=== PATIENT | female | born 1950 | race Caucasian/White ===

== ENCOUNTER 2016-07-10 00:46 | Emergency (ER) | payer MEDICARE, OTHER ==
[~2016-07-10] VITALS: Ht 154.9 cm; Wt 69.9 kg
[~2016-07-10 00:46] MED LIST: ALPR-236 PO; ASCO500C15 PO; BUPR150T8; CALC-946 PO; CETI10TA83 PO; CITA-51; ESTR2TAB23 PO; HYDR-2164 PO; LANS30CA44 PO; MULT-862 PO; OXYC1TAB8 PO; PSEU120T44 PO; RAMIPRIL PO; SENN1TAB89 PO
--- OUTSIDE RECORDS SUMMARY | 2016-07-10 00:50 | XMS REPORT | Referral Summary ---
Author Author [facility] Organization [facility] Address Unknown Phone Unavailable Care Team Providers Care Industrial Psychology Professor Name Role Phone Sanket Villalpando Primary Care Physician [phone] Encounter VC Date(s): 08/04/14 - 08/04/14 [facility] [address] [place], [place] [address] Discharge Disposition: 01-Home or Self Care Attending Physician: Frank Liu MD Admitting Physician: Frank Liu MD Vital Signs No data available for this section Problem List Condition Effective Dates Status Health Status Informant Arthritis(Confirmed) Resolved Arthropathy Active Hand(Confirmed) Cervicalgia(Confirme Resolved d) Depression(Confirmed Resolved ) Dyspepsia(Confirmed) Resolved Esophageal Resolved reflux(Confirmed) Hypertension(Confirm Resolved ed) Insomnia(Confirmed) Resolved Left lateral knee Active pain(Confirmed) Primary Active osteoarthritis of right knee(Confirmed) Primary Active osteoarthritis of left knee(Confirmed) Migraine Active headache(Confirmed) Obesity(Confirmed) Active patient Obesity(Confirmed) Resolved Osteoarthritis(Confi Resolved rmed) Synovial Resolved cyst(Confirmed) Venous Resolved insufficiency(Confir med) Allergies, Adverse Reactions, Alerts Substance Reaction Severity Status erythromycin Unknown Active Medications ALPRAZolam 0.5 mg oral tablet 1 tabs, Oral, TID, as needed for anxiety, 0 Refill(s) Start Date: 01/13/14 Status: Ordered Calcium 600+D tabs, Oral, TID, 0 Refill(s) Start Date: 01/13/14 Status: Ordered CeleXA 40 mg oral tablet tabs, Oral, Daily, 0 Refill(s) Start Date: 01/13/14 Status: Ordered Diflucan 0 Refill(s) Start Date: 01/13/14 Status: Ordered estradiol 2 mg oral tablet tabs, Oral, Daily, 0 Refill(s) Start Date: 01/13/14 Status: Ordered hydrochlorothiazide 25 mg oral tablet 12.5 mg 0.5 tabs, Oral, Daily, 0 Refill(s) Start Date: 12/22/14 Status: Ordered Imitrex 50 mg oral tablet tabs, Oral, Daily, 0 Refill(s) Start Date: 01/13/14 Status: Ordered meloxicam 15 mg oral tablet tabs, Oral, Daily, 0 Refill(s) Start Date: 01/13/14 Status: Ordered oxyCODONE-acetaminophen 5 mg-325 mg oral tablet tabs, Oral, q6hr, 0 Refill(s) Start Date: 01/13/14 Status: Ordered Percocet 5/325 oral tablet 1 tabs, Oral, q12hr, as needed for pain, # 50 tabs, 0 Refill(s) Start Date: 01/04/15 Stop Date: 02/06/15 Status: Ordered Prevacid 30 mg oral delayed release capsule caps, Oral, Daily, 0 Refill(s) Start Date: 01/13/14 Status: Ordered ramipril 10 mg oral capsule 10 mg 1 caps, Oral, Daily, # 30 caps, 0 Refill(s) Start Date: 12/22/14 Status: Ordered Sudafed Oral, q6hr, 0 Refill(s) Start Date: 01/13/14 Status: Ordered traMADol 50 mg oral tablet tabs, Oral, q4hr, 0 Refill(s) Start Date: 01/13/14 Status: Ordered Vitamin D3 0 Refill(s) Start Date: 01/13/14 Status: Ordered Wellbutrin SR Oral, BID, 0 Refill(s) Start Date: 01/13/14 Status: Ordered ZyrTEC 10 mg oral tablet tabs, Oral, Daily, 0 Refill(s) Start Date: 01/13/14 Status: Ordered Results No data available for this section Immunizations No data available for this section Procedures Procedure Date Related Diagnosis Body Site Arthrocentesis, aspiration and/or injection, 08/04/14 major joint or bursa (eg, shoulder, hip, knee, subacromial bursa); without ultrasound guidance R KNEE PMM W/CHONDROPLASTY [facility] 03/01/13 Total hip replacement, right 8/17/11 Appendectomy Dilation and curettage Hammer toe operation Hysterectomy Tonsillectomy Social History Social History Type Response Smoking Status Current every day smoker; Type: Cigarettes Assessment and Plan Extracted from: Title: Office Visit Note Author: Frank Liu MD Date: 08/04/14 Assessment/Plan Primary osteoarthritis of right knee 63-year-old female with right knee osteoarthrosis and genu valgum We again talked about treatment options. She wanted to try another steroid injection and this was done today. Certainly would take a knee replacement to improve her symptoms significantly. I gave her a booklet on this. Procedure note: After informed consent was obtained, the right knee was was prepped with Betadine and the skin overlying the inferolateral portal site was anesthetized with one percent lidocaine using a 25-gauge skin needle. After adequate local anesthesia was obtained, the right knee was injected with half percent Marcaine and 80 mg of Kenalog using a 20-gauge spinal needle. Injection site was then dressed with a sterile dressing. The patient tolerated the procedure well. The patient was advised to contact our office if this does not bring some relief. She wanted some oxycodone too tight her over and we gave her prescription for this for one time only. This today lasted 15 minutes, over 50 percent of the time being spent in discussion of the condition of her right knee and possible treatment options. Ordered: bupivacaine, 3 mL=, IntraARTICULAR , Once, First Dose: 08/04/14 17:00:00 CDT, Stop Date: 08/04/14 17:00:00 CDT, [facility] [id number], Form: Injection triamcinolone, 80 mg/ 2 mL, IntraARTICULAR , Once, First Dose: 08/04/14 17:00: 00 CDT, Stop Date: 08/04/14 17:00:00 CDT, [facility] [id number]
--- OUTSIDE RECORDS SUMMARY | 2016-07-10 00:50 | XMS REPORT | Referral Summary ---
Author Author [facility] Organization [facility] Address Unknown Phone Unavailable Care Team Providers Care Expander Name Role Phone Sanket Villalpando Primary Care Physician [phone] Encounter VC Date(s): 01/12/15 - 01/12/15 [facility] [address] [place], [place] [address] Discharge Diagnosis: Primary osteoarthritis of right knee Discharge Disposition: 01-Home or Self Care Attending Physician: Black Swartz APRN Admitting Physician: Black Swartz APRN Vital Signs Most recent to 1 oldest [Reference Range]: Respiratory Rate 18 br/min [14-20 br/min] (01/12/15 3:34 PM) Problem List Condition Effective Dates Status Health Status Informant Arthritis(Confirmed) Resolved Arthropathy Active Hand(Confirmed) Cervical Active spondylosis(Confirme d) Cervicalgia(Confirme Resolved d) Depression(Confirmed Resolved ) Dyspepsia(Confirmed) Resolved Esophageal Resolved reflux(Confirmed) Presence of left Active artificial knee joint(Confirmed) Hypertension(Confirm Resolved ed) Insomnia(Confirmed) Resolved Left lateral knee Active pain(Confirmed) Primary Active osteoarthritis of right knee(Confirmed) Primary Active osteoarthritis of left knee(Confirmed) Migraine Active headache(Confirmed) Obesity(Confirmed) Resolved Obesity(Confirmed) Active patient Osteoarthritis(Confi Resolved rmed) Synovial Resolved cyst(Confirmed) Venous [...] 0 Refill(s) Start Date: 12/22/14 Status: Ordered meloxicam 15 mg oral tablet tabs, Oral, Daily, 0 Refill(s) Start Date: 01/13/14 Status: Ordered Prevacid 30 mg oral delayed [...] Procedures Procedure Date Related Diagnosis Body Site L TKA [facility] 02/06/15 Arthrocentesis, aspiration and/or injection, 01/12/15 major joint or bursa (eg, shoulder, hip, knee, subacromial bursa); without ultrasound guidance R KNEE PMM W/CHONDROPLASTY [facility] 03/01/13 Total hip replacement, right 11/07/10 Appendectomy Dilation and curettage Hammer toe operation Hysterectomy Tonsillectomy 1M17.12 OA L KNEE [facility] 05/07/2015 Social History Social History Type Response Smoking Status Current every day smoker; Type: Cigarettes Assessment and Plan Extracted from: Title: Office Visit Note Author: Black Swartz APRN Date: 01/12/15 Assessment/Plan 1.Primary osteoarthritis of right knee Reviewed radiographbilateral standing knees with the patient today. Patient does have end-stage arthritis bilateral knees. Patient states that her left knee pain is worse than the right. Patient is on the schedule for left total knee arthroplasty on February 06. Patient is here seeking relief from her right knee pain. Patient is hopefulthatshe can reduce the pain in the right knee so that she will havean easier time with rehabilitationon the left kneewith having greater ability to use the right kneein less painduring her left knee rehabilitation. Recommendation is made for right knee intra-articular steroid injection. Patient does have complete loss of the lateral joint spaceright knee. Recommendation is made for right knee intra-articular steroid injection. Patient is in agreement with this plan. Procedure note: After written informed consent was obtained for a right knee intra-articular steroid injection, the patient was placed in a sitting position. The injection site was cleaned with three Betadine swabs. 3 mL of one percent plain lidocaine was injected using a 25-gauge needle into the right anterior medialknee injection due tothecomplete loss of lateral joint space. I did switch to using the anterolateral knee injection site and was able to get into the joint space without difficulty . After this local had set up, a mixture of 80mg of Kenalog and 3 mL of half percent plain Bupivacaine was injected using a 20-gauge spinal needle into the right intra-articular space. Sterile technique was used throughout the procedure. The injection site was cleaned with alcohol and a Band-Aid was applied. The patient tolerated the procedure without difficulty. The patient was advised to contact our office if this injection does not bring some relief. Ordered: bupivacaine, 3 mL=, IntraARTICULAR , Once, First Dose: 01/12/15 17:00:00 CDT, Stop Date: 01/12/15 17:00:00 CDT, [facility] [id number], Form: Injection triamcinolone, 2 mL, IntraARTICULAR, Once, First Dose: 01/12/15 17:00:00 CDT, Stop Date: 01/12/15 17:00:00 CDT, [facility] [id number], Form: Injection Arthro/Asp Major Joint Inj (Shoulder, Hip, Knee) 91122 Extracted from: Title: Ambulatory Patient Education Author: Black Swartz APRN Date : 01/12/15 Family Medicine Knee Injection Joint injections are shots. Your caregiver will place a needle into your knee joint. The needle is used to put medicine into the joint. These shots can be used to help treat different painful knee conditions such as osteoarthritis, bursitis, local flare-ups of rheumatoid arthritis, and pseudogout. Anti- inflammatory medicines such as corticosteroids and anesthetics are the most common medicines used for joint and soft tissue injections. PROCEDURE The skin over the kneecap will be cleaned with an antiseptic solution. Your caregiver will inject a small amount of a local anesthetic (a medicine like Novocaine) just under the skin in the area that was cleaned. After the area becomes numb, a second injection is done. This second injection usually includes an anesthetic and an anti-inflammatory medicine called a steroid or cortisone. The needle is carefully placed in between the kneecap and the knee, and the medicine is injected into the joint space. After the injection is done, the needle is removed. Your caregiver may place a bandage over the injection site. The whole procedure takes no more than a couple of minutes. BEFORE THE PROCEDURE Wash all of the skin around the entire knee area. Try to remove any loose, scaling skin. There is no other specific preparation necessary unless advised otherwise by your caregiver. LET YOUR CAREGIVER KNOW ABOUT: Allergies. Medications taken including herbs, eye drops, over the counter medications , and creams. Use of steroids (by mouth or creams). Possible , if applicable. Previous problems with anesthetics or Novocaine. History of blood clots (thrombophlebitis). History of bleeding or blood problems. Previous surgery. Other health problems. RISKS AND COMPLICATIONS Side effects from cortisone shots are rare. They include: Slight bruising of the skin. Shrinkage of the normal fatty tissue under the skin where the shot was given. Increase in pain after the shot. Infection. Weakening of tendons or tendon rupture. Allergic reaction to the medicine. Diabetics may have a temporary increase in their blood sugar after a shot. Cortisone can temporarily weaken the immune system. While receiving these shots, you should not get certain vaccines. Also, avoid contact with anyone who has chickenpox or measles. Especially if you have never had these diseases or have not been previously immunized. Your immune system may not be strong enough to fight off the infection while the cortisone is in your system. AFTER THE PROCEDURE You can go home after the procedure. You may need to put ice on the joint 15-20 minutes every 3 or 4 hours until the pain goes away. You may need to put an elastic bandage on the joint. HOME CARE INSTRUCTIONS Only take xtje-kyd-mqyeycp or prescription medicines for pain, discomfort, or fever as directed by your caregiver. You should avoid stressing the joint. Unless advised otherwise, avoid activities that put a lot of pressure on a knee joint, such as: Jogging. Bicycling. Recreational climbing. Hiking. Laying down and elevating the leg/knee above the level of your heart can help to minimize swelling. SEEK MEDICAL CARE IF: You have repeated or worsening swelling. There is drainage from the puncture area. You develop red streaking that extends above or below the site where the needle was inserted. SEEK IMMEDIATE MEDICAL CARE IF: You develop a fever. You have pain that gets worse even though you are taking pain medicine. The area is red and warm, and you have trouble moving the joint. MAKE SURE YOU: Understand these instructions. Will watch your condition. Will get help right away if you are not doing well or get worse. Document Released: 06/01/2007 Document Revised: 06/01/2012 Document Reviewed: [facility] Patient Information 2015 [employer] [facility]. This information is not intended to replace advice given to you by your health care provider. Make sure you discuss any questions you have with your health care provider. Osteoarthritis Osteoarthritis is a disease that causes soreness and inflammation of a joint. It occurs when the cartilage at the affected joint wears down. Cartilage acts as a cushion, covering the ends of bones where they meet to form a joint. Osteoarthritis is the most common form of arthritis. It often occurs in older people. The joints affected most often by this condition include those in the: Ends of the fingers. Thumbs. Neck. Lower back. Knees. Hips. CAUSES Over time, the cartilage that covers the ends of bones begins to wear away. This causes bone to rub on bone, producing pain and stiffness in the affected joints. RISK FACTORS Certain factors can increase your chances of having osteoarthritis, including: Older age. Excessive body weight. Overuse of joints. Previous joint injury. SIGNS AND SYMPTOMS Pain, swelling, and stiffness in the joint. Over time, the joint may lose its normal shape. Small deposits of bone (osteophytes) may grow on the edges of the joint. Bits of bone or cartilage can break off and float inside the joint space. This may cause more pain and damage. DIAGNOSIS Your health care provider will do a physical exam and ask about your symptoms. Various tests may be ordered, such as: X-rays of the affected joint. An MRI scan. Blood tests to rule out other types of arthritis. Joint fluid tests. This involves using a needle to draw fluid from the joint and examining the fluid under a microscope. TREATMENT Goals of treatment are to control pain and improve joint function. Treatment plans may include: A prescribed exercise program that allows for rest and joint relief. A weight control plan. Pain relief techniques, such as: Properly applied heat and cold. Electric pulses delivered to nerve endings under the skin (transcutaneous electrical nerve stimulation [TENS]). Massage. Certain nutritional supplements. Medicines to control pain, such as: Acetaminophen. Nonsteroidal anti-inflammatory drugs (NSAIDs), such as naproxen. Narcotic or central-acting agents, such as tramadol. Corticosteroids. These can be given orally or as an injection. Surgery to reposition the bones and relieve pain (osteotomy) or to remove loose pieces of bone and cartilage. Joint replacement may be needed in advanced states of osteoarthritis. HOME CARE INSTRUCTIONS Take medicines only as directed by your health care provider. Maintain a healthy weight. Follow your health care provider's instructions for weight control. This may include dietary instructions. Exercise as directed. Your health care provider can recommend specific types of exercise. These may include: Strengthening exercises. These are done to strengthen the muscles that support joints affected by arthritis. They can be performed with weights or with exercise bands to add resistance. Aerobic activities. These are exercises, such as brisk walking or low- impact aerobics, that get your heart pumping. Czgnq-aj-rttahv activities. These keep your joints limber. Balance and agility exercises. These help you maintain daily living skills. Rest your affected joints as directed by your health care provider. Keep all follow-up visits as directed by your health care provider. SEEK MEDICAL CARE IF: Your skin turns red. You develop a rash in addition to your joint pain. You have worsening joint pain. You have a fever along with joint or muscle aches. SEEK IMMEDIATE MEDICAL CARE IF: You have a significant loss of weight or appetite. You have night sweats. FOR MORE INFORMATION [employer] [place] of Arthritis and Musculoskeletal and Skin Diseases: www.niams.nih.gov [employer] [place] on Aging: www.venkatesh.nih.gov [employer]: www.rheumatology.org Document Released: 03/10/2006 Document Revised: 07/25/2014 Document Reviewed: [employer] Patient Information 2015 [employer]. This information is not intended to replace advice given to you by your health care provider. Make sure you discuss any questions you have with your health care provider. No follow up information was provided.
--- OUTSIDE RECORDS SUMMARY | 2016-07-10 00:50 | XMS REPORT | Referral Summary ---
Author Author [facility] Organization [facility] Address Unknown Phone Unavailable Care Team Providers Care Lay Out Worker Name Role Phone Sanket Villalpando Primary Care Physician [phone] Encounter VC Date(s): 12/22/14 - 12/22/14 [facility] [address] [place], [place] [address] [[email or web address] Discharge Diagnosis: Primary osteoarthritis of left knee Discharge Disposition: 01-Home or Self Care Attending Physician: Frank Liu MD Admitting Physician: Frank Liu MD Vital Signs No data available for this section Problem List Condition Effective Dates Status Health Status Informant Arthritis(Confirmed) Resolved Arthritis of knee, Active right(Confirmed) Arthropathy Active Hand(Confirmed) Cervicalgia(Confirme Resolved d) Depression(Confirmed Resolved ) Dyspepsia(Confirmed) Resolved Esophageal Resolved reflux(Confirmed) Hypertension(Confirm Resolved ed) Insomnia(Confirmed) Resolved Left lateral knee Active pain(Confirmed) Primary Active osteoarthritis of left knee(Confirmed) Migraine Active headache(Confirmed) Obesity(Confirmed) Active patient Obesity(Confirmed) Active patient Obesity(Confirmed) Resolved Osteoarthritis(Confi Resolved [...] Procedures Procedure Date Related Diagnosis Body Site R KNEE PMM W/CHONDROPLASTY [facility] 03/01/13 Total hip replacement, right 11/07/10 Appendectomy Dilation and curettage Hammer toe operation Hysterectomy Tonsillectomy Social History Social History Type Response Smoking Status Current every day smoker; Type: Cigarettes Assessment and Plan No data available for this section
--- OUTSIDE RECORDS SUMMARY | 2016-07-10 00:50 | XMS REPORT | Referral Summary ---
Author Author [facility] Organization [facility] Address Unknown Phone Unavailable Care Team Providers Care Parking Control Officer Name Role Phone Sanket Villalpando Primary Care Physician [phone] Encounter VC Date(s): 12/08/14 - 12/08/14 [facility] [address] [place], [place] [address] Discharge Disposition: 01-Home or Self Care [...] Date Related Diagnosis Body Site L TKA [facility] 02/06/15 R KNEE PMM W/CHONDROPLASTY [facility] 03/01/13 Total hip replacement, right 11/07/10 Appendectomy Dilation and curettage Hammer toe operation Hysterectomy Tonsillectomy 1M17.12 OA L KNEE [facility] 05/07/2015 Social History Social History Type Response Smoking Status Current every day smoker; Type: Cigarettes Assessment and Plan Extracted from: Title: Ortho L Knee Brace Fit Author: Ashley Hassan RN Date: 12/08/14 pt presents to clinic ambulatory with cane, did have trouble rising from sitting position, pt states "I feel so unstable with this knee", states she is planning to get R knee replaced in the future but "I have to get this one stable first", pt ambulated to cast room, fitted pt with large hinge brace to L knee, pt ambulated around room and down hallway with some relief, pt states "I think this will work", pt ambulated to exit without difficulty, pt states has appointment with Dr. Liu 10/01/15 to re-evaluate leg, encouraged pt to call if any questions or concerns
--- OUTSIDE RECORDS SUMMARY | 2016-07-10 00:51 | XMS REPORT | Referral Summary ---
Author Author [facility] Organization [facility] Address Unknown Phone Unavailable Care Team Providers Care Echocardiograph Technician Name Role Phone Sanket Villalpando Primary Care Physician [phone] Encounter VC Date(s): 04/18/15 - 04/18/15 [facility] [address] [place], [place] [address] Discharge Diagnosis: Encounter for orthopedic follow-up care Discharge Diagnosis: Presence of left artificial knee joint Discharge Diagnosis: Contusion of left knee Discharge Disposition: 01-Home or Self Care Attending Physician: Black Swartz APRN Admitting Physician: Black Swartz APRN Vital Signs No data available for this [...] Percocet 5/325 oral tablet 1 tabs, Oral, TID, as needed for pain, Max 3 tabs per 24 hours, # 50 tabs, 0 Refill(s) Start Date: 03/29/15 Stop Date: 04/26/15 Status: Ordered Prevacid 30 mg oral delayed [...] Date Related Diagnosis Body Site L TKA [facility] 02/06/15 R KNEE PMM W/CHONDROPLASTY [facility] 03/01/13 Total hip replacement, right 11/07/10 Appendectomy Dilation and curettage Hammer toe operation Hysterectomy Tonsillectomy 1M17.12 OA L KNEE [facility]DS 05/07/2015 Social History Social History Type Response Smoking Status Current every day smoker; Type: Cigarettes Assessment and Plan Extracted from: Title: Office Visit Note Author: Black Swartz DINORA Date: 04/18/15 Assessment/Plan 1.Presence of left artificial knee joint Ordered: Postoperative Est 51720 2.Contusion of left knee Ordered: Postoperative Est 55426 3.Left knee pain Ordered: Postoperative Est 87617 XR Knee 1 or 2 Views Left 4.Encounter for orthopedic follow-up care Reviewed radiographs taken today with Dr. Liu on the patient. Discussed patient's progress and prognosis after her fall onto the left knee.. Patient does havecontusion ecchymosis over the left knee. Patientdoes havesome new left knee area pain. Patient reports that the leftknee painis reducing in severity. Patient does report some continued left knee pain with known end-stage arthritisright knee with complete loss of lateral joint space. Patient does know at some point she will need to have a right knee replacement procedure however she needs toa crewmore PTObefore proceeding with scheduling of the surgery. Discussed with patient thatthere does appear to be any acute injury to the left knee. Patient should continue with her range of motion exercises of the left knee. Counseled patientthat it will take some time for theecchymosis and bruising to improve. Patient will follow-up on as-needed basis in regards to the fallonto the left knee. Patient will call with any questions or concerns regarding care and treatment of her left knee replacement. Patient is in agreement with this plan. Ordered: Postoperative Est 63286
--- OUTSIDE RECORDS SUMMARY | 2016-07-10 00:51 | XMS REPORT | Referral Summary ---
Author Author [facility] Organization [facility] Address Unknown Phone Unavailable Care Team Providers Care Business Services Officer Name Role Phone Sanket Villalpando Primary Care Physician [phone] Encounter VC Date(s): 08/04/14 - 08/04/14 [facility] [address] [place], [place] [address] Discharge Disposition: 01-Home or Self Care Attending [...] Date Related Diagnosis Body Site L TKA [facility] 02/06/15 Arthrocentesis, aspiration and/or injection, 08/04/14 major joint or bursa (eg, shoulder, hip, knee, subacromial bursa); without ultrasound guidance R KNEE PMM W/CHONDROPLASTY [facility] 03/01/13 Total hip replacement, right 11/07/10 [...] 17:00:00 CDT, Stop Date: 08/04/14 17:00:00 CDT, [facility] [id number], Form: Injection triamcinolone, 80 mg/ 2 mL, IntraARTICULAR , Once, First Dose: 08/04/14 17:00: 00 CDT, Stop Date: 08/04/14 17:00:00 CDT, [facility] [id number]
--- OUTSIDE RECORDS SUMMARY | 2016-07-10 00:51 | XMS REPORT | Referral Summary ---
Author Author [facility] Organization [facility] Address Unknown Phone Unavailable Care Team Providers Care Bonding And Composite Fabricator Name Role Phone Sanket Villalpando Primary Care Physician [phone] Encounter VC Date(s): 05/11/15 - 05/11/15 [facility] [address] [place], [place] [address] Discharge Diagnosis: Primary osteoarthritis of right knee Discharge Diagnosis: Cervical spondylosis Discharge Diagnosis: Arthritis pain of shoulder Discharge Disposition: 01-Home or Self Care Attending Physician: Frank Liu MD Admitting Physician: Frank Liu MD Vital Signs Most recent to 1 oldest [Reference Range]: Respiratory Rate 18 br/min [14-20 br/min] (05/11/15 12:58 PM) Problem List Condition Effective Dates Status [...] 01/13/14 Status: Ordered Percocet 5/325 oral tablet 1-2 tabs, Oral, Daily, as needed for pain, Max 8 tabs per 24 hours, # 50 tabs, 0 Refill(s) Start Date: 05/11/15 Stop Date: 05/19/15 Status: Ordered Prevacid 30 mg oral delayed [...] Diagnosis Body Site Arthrocentesis, aspiration and/or injection, 05/11/15 major joint or bursa (eg, shoulder, hip, knee, subacromial bursa); without ultrasound guidance L TKA [facility] 02/06/15 R KNEE PMM W/CHONDROPLASTY [facility] 03/01/13 Total hip replacement, right 11/07/10 Appendectomy Dilation and curettage Hammer toe operation Hysterectomy Tonsillectomy 1M17.12 OA L KNEE GLOBAL ENDS 05/07/2015 Social History Social History Type Response Smoking Status Current every day smoker; Type: Cigarettes Assessment and Plan No data available for this section
--- OUTSIDE RECORDS SUMMARY | 2016-07-10 00:51 | XMS REPORT | Referral Summary ---
Author Author [facility] Organization [facility] Address Unknown Phone Unavailable Care Team Providers Care Charge Poster Name Role Phone Sanket Villalpando Primary Care Physician [phone] Encounter VC Date(s): 11/10/14 - 11/10/14 [facility] [address] [place], [place] [address] Discharge Diagnosis: Left lateral knee pain Discharge Disposition: 01-Home or Self Care Attending [...] Date Related Diagnosis Body Site L TKA [facility] 02/06/15 R KNEE PMM W/CHONDROPLASTY [facility] 03/01/13 Total hip replacement, right 11/07/10 Appendectomy Dilation and curettage Hammer toe operation Hysterectomy Tonsillectomy 1M17.12 OA L KNEE GLOBAL ENDS 05/07/2015 Social History Social History Type Response Smoking Status Current every day smoker; Type: Cigarettes Assessment and Plan Extracted from: Title: Office Visit Note Author: Frank Liu MD Date: 11/10/14 Assessment/Plan Left lateral knee pain 64-year-old female with left knee pain and some arthritis. She has bilateral genu valgus as well. We are lengthy discussion regards to possible further evaluation measures and treatment options for her knees. X-rays on her left knee really don't look too bad, although one AP view does show some lateral joint space narrowing. We talked about possible knee arthroscopy to evaluate her knee further, like she had on the right side. We decided to get an MRI scan of her left knee and I will let her know what that shows. If her arthritis does not look too bad, we may want to consider a knee arthroscopy. She wanted to have another prescription for oxycodone which I agreed to do one time. She is to use this sparingly. Ordered: Office Visit Level 3 Est 28648
--- OUTSIDE RECORDS SUMMARY | 2016-07-10 00:51 | XMS REPORT | Referral Summary ---
Author Author [facility] Organization [facility] Address Unknown Phone Unavailable Care Team Providers Care Refrigeration Systems Installer Name Role Phone Sanket Villalpando Primary Care Physician [phone] Encounter VC Date(s): 12/22/14 - 12/22/14 [facility] [address] [place], [place] [address] Discharge Diagnosis: Primary osteoarthritis of left knee [...] Date Related Diagnosis Body Site L TKA [facility] 02/06/15 R KNEE PMM W/CHONDROPLASTY [facility] 03/01/13 Total hip replacement, right 11/07/10 Appendectomy Dilation and curettage Hammer toe operation Hysterectomy Tonsillectomy 1M17.12 OA L KNEE [facility]LO[facility] ENDS 05/07/2015 Social History Social History Type Response Smoking Status Current every day smoker; Type: Cigarettes Assessment and Plan Extracted from: Title: Office Visit Note Author: Frank Liu MD Date: 12/22/14 Assessment/Plan Primary osteoarthritis of left knee 64-year-old female with osteoarthrosis of the left knee and genu valgus. We talked about treatment options again. Most of her x-ray views, her right knee looks worse than left. She does however have significant lateral joint space loss. An MRI scan done on November 2showsa "full thickness cartilage defect of the lateral femoral condyle". We discussed the relative merits ofknee arthroscopy versus knee replacement surgery. I really don't feel that she would get much improvement with knee arthroscopy given her arthritis. I have a feeling would probably take a knee replacement to improve her symptoms significantly. I discussed with her the risks and benefits of doing this, and emphasized differences between hip and kneearthroplasty as far as postoperativea repeat. I gave her booklet on knee replacement surgery and we discussed the usual postop course, possible complications and long-term prognosis. All questions were answered andshe would like to go and set this up. Realistic expectations were stressed as well. Status post total hip replacement This appears to be doing well.
--- OUTSIDE RECORDS SUMMARY | 2016-07-10 00:51 | XMS REPORT | Referral Summary ---
Author Author [facility] Organization [facility] Address Unknown Phone Unavailable Care Team Providers Care Boiling Tub Operator Name Role Phone Sanket Villalpando Primary Care Physician [phone] Encounter VC Date(s): 09/18/15 - 09/18/15 [facility] [address] [place], [place] [address] Discharge Disposition: 01-Home or Self Care Attending Physician: Frank Liu MD Admitting Physician: Frank Liu MD Vital Signs Most recent to 1 oldest [Reference Range]: Respiratory Rate 20 br/min [14-20 br/min] (09/18/15 10:50 AM) Problem List Condition Effective Dates Status Health [...] Status: Ordered CeleXA 40 mg oral tablet 40mg M,T,W,Th. 60mg F, S, Sun., 0 Refill(s) Start Date: 01/13/14 Status: Ordered Diflucan 0 Refill(s) Start Date: 01/13/14 Status: Ordered hydrochlorothiazide 25 mg oral tablet 12.5 mg 0.5 tabs, Oral, Daily, 0 Refill(s) Start Date: 12/22/14 Status: Ordered meloxicam 15 mg oral tablet tabs, Oral, Daily, 0 Refill(s) Start Date: 01/13/14 Status: Ordered Percocet 7.5/325 oral tablet 2 tabs, Oral, q6hr, as needed for pain, 0 Refill(s) Start Date: 09/18/15 Status: Ordered Percocet 7.5/325 oral tablet 1-2 tabs, Oral, q4hr, as needed for pain, Max 8 tabs per 24 hours, # 60 tabs, 0 Refill(s) Start Date: 09/18/15 Stop Date: 09/29/15 Status: Ordered Prevacid 30 mg oral delayed [...] Procedure Date Related Diagnosis Body Site R TKA [facility] 09/04/15 L TKA [facility] 02/06/15 R KNEE PMM W/CHONDROPLASTY [facility] 03/01/13 Total hip replacement, right 11/07/10 Appendectomy Dilation and curettage Hammer toe operation Hysterectomy Tonsillectomy 1M17.11 GLOBAL ENDS 12/03/2015 2M17.12 OA L KNEE GLOBAL ENDS 05/07/2015 Social History Social History Type Response Smoking Status Current every day smoker; Type: Cigarettes Assessment and Plan Extracted from: Title: Office Visit Note Author: Frank Liu MD Date: 09/18/15 Assessment/Plan Orthopedic aftercare 65-year-old female status post right total knee replacement. We again talked about her progress and prognosis. I recommended she discontinue her aspirin and restart her meloxicam. We also refilled her Percocet. I told her tomonitor the drainage to make sure that this dries up. She is to let us know if it doesn't. We gave her an implant card and we took out her monie andplaced Steri-Strips and benzoin. We'll plan on seeing her back in a month's time. Ordered: oxyCODONE-acetaminophen, 1-2 tabs, Oral, q4hr, as needed for pain, Max 8 tabs per 24 hours, # 60 tabs, 0 Refill(s) Postoperative Est 53349 Status post total right knee replacement Ordered: oxyCODONE-acetaminophen, 1-2 tabs, Oral, q4hr, as needed for pain, Max 8 tabs per 24 hours, # 60 tabs, 0 Refill(s) Postoperative Est 60126
--- OUTSIDE RECORDS SUMMARY | 2016-07-10 00:51 | XMS REPORT | Referral Summary ---
Author Author [facility] Organization [facility] Address Unknown Phone Unavailable Care Team Providers Care Roller Stitcher Name Role Phone Sanket Villalpando Primary Care Physician [phone] Encounter VC Date(s): 08/08/15 - 08/08/15 [facility] [address] [place], [place] [address] Discharge Disposition: 01-Home or Self [...] Date Related Diagnosis Body Site L TKA [facility] 02/06/15 R KNEE PMM W/CHONDROPLASTY [facility] 03/01/13 Total hip replacement, right 11/07/10 Appendectomy Dilation and curettage Hammer toe operation Hysterectomy Tonsillectomy 1M17.12 OA L KNEE GLOBAL ENDS 05/07/2015 Social History Social History Type Response Smoking Status Current every day smoker; Type: Cigarettes Assessment and Plan No data available for this section
--- OUTSIDE RECORDS SUMMARY | 2016-07-10 00:51 | XMS REPORT | Referral Summary ---
Author Author [facility] Organization [facility] Address Unknown Phone Unavailable Care Team Providers Care Cooler Servicer Name Role Phone Sanket Villalpando Primary Care Physician [phone] Encounter VC Date(s): 09/01/15 - 09/01/15 [facility] [address] [place], [place] [address] Discharge Disposition: 01-Home or Self Care Attending Physician: Leroy Godfrey MD Admitting Physician: Leroy Godfrey MD Vital Signs No data available for [...] Date Related Diagnosis Body Site L TKA [facility] 02/06/15 R KNEE PMM W/CHONDROPLASTY [facility] 03/01/13 Total hip replacement, right 11/07/10 Appendectomy Dilation and curettage Hammer toe operation Hysterectomy Tonsillectomy 1M17.12 OA L KNEE GLOBAL ENDS 05/07/2015 Social History Social History Type Response Smoking Status Current every day smoker; Type: Cigarettes Assessment and Plan No data available for this section
--- OUTSIDE RECORDS SUMMARY | 2016-07-10 00:51 | XMS REPORT | Referral Summary ---
Author Author [facility] Organization [facility] Address Unknown Phone Unavailable Care Team Providers Care Impregnator And Drier Helper Name Role Phone Sanket Villalpando Primary Care Physician [phone] Encounter VC Date(s): 08/04/14 - 08/04/14 [facility] [address] [place], [place] [address] Discharge Disposition: 01-Home or [...] 17:00:00 CDT, Stop Date: 08/04/14 17:00:00 CDT, [facility] [id number], Form: Injection triamcinolone, 80 mg/ 2 mL, IntraARTICULAR , Once, First Dose: 08/04/14 17:00: 00 CDT, Stop Date: 08/04/14 17:00:00 CDT, [facility] [id number]
--- OUTSIDE RECORDS SUMMARY | 2016-07-10 00:51 | XMS REPORT | Referral Summary ---
Author Author [facility] Organization [facility] Address Unknown Phone Unavailable Care Team Providers Care Caster Operator Name Role Phone Sanket Villalpando Primary Care Physician [phone] Encounter VC Date(s): 05/24/15 - 05/24/15 [facility] [address] [place] [address] [facility] Discharge Disposition: 01-Home or Self Care Attending Physician: Leroy Godfrey MD Admitting Physician: Leroy Godfrey MD Referring Physician: Leroy Godfrey MD Vital Signs No [...] Date Related Diagnosis Body Site L TKA [facility] 02/06/15 R KNEE PMM W/CHONDROPLASTY [facility] 03/01/13 Total hip replacement, right 11/07/10 Appendectomy Dilation and curettage Hammer toe operation Hysterectomy Tonsillectomy 1M17.12 OA L KNEE GLOBAL ENDS 05/07/2015 Social History Social History Type Response Smoking Status Current every day smoker; Type: Cigarettes Assessment and Plan No data available for this section
--- OUTSIDE RECORDS SUMMARY | 2016-07-10 00:51 | XMS REPORT | Referral Summary ---
Author Author [facility] Organization [facility] Address Unknown Phone Unavailable Care Team Providers Care Communications Assistant Name Role Phone Sanket Villalpando Primary Care Physician [phone] Encounter VC Date(s): 01/12/15 - 01/12/15 [facility] [address] [place], [place] [address] Discharge Diagnosis: Primary osteoarthritis of right knee [...] Diagnosis Body Site Arthrocentesis, aspiration and/or injection, 01/12/15 major joint or bursa (eg, shoulder, hip, knee, subacromial bursa); without ultrasound guidance R KNEE PMM W/CHONDROPLASTY [facility] 03/01/13 Total hip replacement, right 11/07/10 Appendectomy Dilation and curettage Hammer toe operation Hysterectomy Tonsillectomy Social History Social History Type Response Smoking Status Current every day smoker; Type: Cigarettes Assessment and Plan Extracted from: Title: Office Visit Note Author: Black Swartz DINORA Date: 01/12/15 Assessment/Plan 1.Primary osteoarthritis of right [...] 17:00:00 CDT, Stop Date: 01/12/15 17:00:00 CDT, [facility] [id number], Form: Injection triamcinolone, 2 mL, IntraARTICULAR, Once, First Dose: 01/12/15 17:00:00 CDT, Stop Date: 01/12/15 17:00:00 CDT, [facility] [id number], Form: Injection Arthro/Asp Major Joint Inj (Shoulder, Hip, Knee) 06791 Extracted from: Title: Ambulatory Patient Education Author: [...] the joint. HOME CARE INSTRUCTIONS Only take nigs-[id number] or prescription medicines for pain, discomfort, or [...] Released: 06/01/2007 Document Revised: 06/01/2012 Document Reviewed: [facility] Patient Information 2015 [employer] [facility]. This information is not [...] impact aerobics, that get your heart pumping. Llbbj-ju-dtztny activities. These keep your joints limber. Balance [...] have night sweats. FOR MORE INFORMATION National [place] of Arthritis and Musculoskeletal and Skin Diseases: www.niams.nih.gov National [place] on Aging: www.venkatesh.nih.gov [employer]: www.rheumatology.org Document Released: 03/10/2006 Document Revised: 07/25/2014 Document Reviewed: [employer] Patient Information 2015 [employer]. This information is not intended to replace advice given to you by your health care provider. Make sure you discuss any questions you have with your health care provider. No follow up information was provided.
--- OUTSIDE RECORDS SUMMARY | 2016-07-10 00:51 | XMS REPORT | Referral Summary ---
Author Author [facility] Organization [facility] Address Unknown Phone Unavailable Care Team Providers Care Music Pastor Name Role Phone Sanket Villalpando Primary Care Physician [phone] Encounter VC Date(s): 10/06/14 - 10/06/14 [facility] [address] [place], [place] [address] Discharge Diagnosis: Left knee pain Discharge Disposition: 01-Home or Self [...] Date Related Diagnosis Body Site L TKA [facility] 02/06/15 Arthrocentesis, aspiration and/or injection, 10/06/14 major joint or bursa (eg, shoulder, hip, knee, subacromial bursa); without ultrasound guidance R KNEE PMM W/CHONDROPLASTY [facility] 03/01/13 Total hip replacement, right 11/07/10 Appendectomy Dilation and curettage Hammer toe operation Hysterectomy Tonsillectomy 1M17.12 OA L KNEE GLOBAL ENDS 05/07/2015 Social History Social History Type Response Smoking Status Current every day smoker; Type: Cigarettes Assessment and Plan Extracted from: Title: Office Visit Note Author: Frank Liu MD Date: 10/06/14 Assessment/Plan 1.Left knee pain 64 y/o WF with left knee pain and some mild genu valga. Discussed treatment options. Decided to try a steroid injection which was done. Procedure note: After informed consent was obtained, the patient's left knee was prepped with betadine, and the skin over the inferolateral portal site was injected with 1% Lidocaine using sterile procedure and a 25 ga. needle. The left knee joint was then injected with 80 mg of Kenalog and 1/2% Lidocaine using a 20 ga. spinal needle. Patient tolerated the procedure well. She is to let us know if this does not help. If the injection does not help, or if it wears off, she will let us know and we will get an MRI scan to evaluate her left knee further. The visit today lasted 15 minutes, over 50% of the time discussing the condition of her knees, possible further evaluation methods, and possible treatment options. Ordered: bupivacaine, 3 mL=, IntraARTICULAR , Once, First Dose: 10/06/14 17:00:00 CDT, Stop Date: 10/06/14 17:00:00 CDT, [facility] [id number], Form: Injection triamcinolone, 80 mg/ 2 mL, IntraARTICULAR , Once, First Dose: 10/06/14 17:00: 00 CDT, Stop Date: 10/06/14 17:00:00 CDT, [facility] [id number] Arthro/Asp Major Joint Inj (Shoulder, Hip, Knee) 68519 Office Visit Level 3 Est 01147
--- OUTSIDE RECORDS SUMMARY | 2016-07-10 00:51 | XMS REPORT | Referral Summary ---
Author Author [facility] Organization [facility] Address Unknown Phone Unavailable Care Team Providers Care Director Of Counterintelligence Name Role Phone Sanket Villalpando Primary Care Physician [phone] Encounter Date(s): 03/29/15 - 03/29/15 [facility] [address] [place], [place] [address] Discharge Diagnosis: Presence of left artificial knee joint Discharge Diagnosis: Encounter for orthopedic follow-up care Discharge Disposition: 01-Home or Self Care Attending Physician: Black Swartz APRN Admitting Physician: Black Swartz APRN Vital Signs Most recent to 1 oldest [Reference Range]: Temperature Oral 36.9 degC [35.8-37.3 degC] (03/29/15 10:14 AM) Problem List Condition Effective Dates Status [...] Date Related Diagnosis Body Site L TKA [facility] 02/06/15 R KNEE PMM W/CHONDROPLASTY [facility] 03/01/13 Total hip replacement, right 11/07/10 Appendectomy Dilation and curettage Hammer toe operation Hysterectomy Tonsillectomy 1M17.12 OA L KNEE GLOBAL ENDS 05/07/2015 Social History Social History Type Response Smoking Status Current every day smoker; Type: Cigarettes Assessment and Plan No data available for this section
--- OUTSIDE RECORDS SUMMARY | 2016-07-10 00:51 | XMS REPORT | Referral Summary ---
Author Author [facility] Organization [facility] Address Unknown Phone Unavailable Care Team Providers Care Length Control Tester Name Role Phone Sanket Villalpando Primary Care Physician [phone] Encounter VC Date(s): 08/04/14 - 08/04/14 [facility] [address] [place], [place] [address] Discharge Disposition: 01-Home or Self Care [...] CDT, [facility] [id number], Form: Injection triamcinolone, 80 mg/ 2 mL, IntraARTICULAR , Once, First Dose: 08/04/14 17:00: 00 CDT, Stop Date: 08/04/14 17:00:00 CDT, [facility] [id number]
--- OUTSIDE RECORDS SUMMARY | 2016-07-10 00:52 | XMS REPORT | Continuity of Care Document ---
Author Author Radha Collado MA [facility] Address [address] [place] [address] Phone Unavailable Care Team Providers Care Manager Respiratory Name Role Phone VillalpandoAlexis PP Unavailable Payers Payer name Insurance type Covered alliance party ID Authorization(s) Unknown Problems Condition Effective Dates (start - stop) Clinical Status Derangement of lateral meniscus, unspecified - *Stable Genu valgum (acquired) - *Chronic Osteoarthrosis, localized, not specified whether primary or secondary, involving lower leg - *Chronic Osteoarthrosis, unspecified whether generalized or localized, involving lower leg - *Symptomatic S/P arthroscopic knee surgery - *Acute Chronic meniscal tear of knee - *Stable Other hammer toe (acquired) - Recurrent Family History Family Member Diagnosis Age At Onset Status Family h/o (Unknown) Hypertension Yes Social History Social History Element Description Quantity alcohol Allergies, Adverse Reactions, Alerts Substance Reaction Severity Status ERYTHROMYCIN BASE Unknown Unknown VARENICLINE TARTRATE Unknown Medications Medication Instructions Dosage Effective Dates (start - stop) Status alprazolam ER 0.5 mg tablet,extended release 24 hr take 1 tablet (0.5MG) by oral route every day 0.5 MG - Active Benicar 40 mg tablet take 1 tablet (40MG) by oral route every day 40 MG - Active CALCIUM 500 + VIT D (unknown strength) - Active Celexa 40 mg tablet take 1 tablet (40MG) by oral route every day 40 MG - Active estradiol 2 mg tablet take 1 tablet (2MG) by oral route every day 2 MG - Active Imitrex 50 mg tablet take 2 tablet (100MG) by oral route once with fluids as early as possible after the onset of a migraine attack;may repeat after 2 hours if headache returns, not to exceed 200mg in 24hrs 100 MG - Active LIDEX - 0.05% topical cream - Active meloxicam 15 mg tablet take 1 tablet (15MG) by oral route every day 15 MG - Active Pepcid AC 10 mg tablet take 1 tablet (10MG) by oral route every day as needed 10 MG - Active Prevacid SoluTab 30 mg delayed release,disintegrating tablet take 1 tablet ( 30MG) by oral route every day and place on top of the tongue where it will dissolve, then swallow 30 MG - Active Sudogest 12-hour 120 mg tablet,extended release take 1 tablet (120MG) by oral route every 12 hours 120 MG - Active VITAMIN B-6 (unknown strength) take 1 Tablet by Oral route every day - Active Flonase 50 mcg/actuation Nasal Payette spray 1 spray (50MCG) by intranasal route every day in each nostril as needed 50 MCG - Active tramadol 50 mg tablet take 0.5 Tablet (25MG) by oral route 3 times every day as needed 25 MG - Active Tylenol 325 mg tablet take 1 - 2 Tablet (325MG) by oral route 3 times every day as needed 325 MG - Active Vitamin D3 5,000 unit tablet take 1 Tablet by Oral route every day 0 - Active Wellbutrin SR 150 mg tablet,sustained-release take 1 tablet (150MG) by oral route 2 times every day 150 MG - Active Zyrtec 10 mg tablet take 1 tablet (10MG) by oral route every day 10 MG - Active Diflucan 150 mg tablet take 1 tablet (150MG) by oral route once 150 MG - Active Diflucan 150 mg tablet take 1 tablet (150MG) by oral route once 150 MG - Active Percocet 5 mg-325 mg tablet take 1 tablet by oral route every 6 hours as needed 0 - Active Immunizations Vaccine Date Status Comments Unknown Results Test Name Date and Time Measure Units Reference Range Abnormal Flag Comments Unknown Vital Signs Date / Time: Height Weight Pulse Rate Blood Pressure Temperature /08:47:00 62.00 in 160.00 lbs Procedures Procedure Date Unknown Encounters Encounter Location Date Patient Visit [facility] Ortho Patient Visit [facility] E21 Pod Patient Visit [facility] Patient [facility] Ortho Patient Visit [facility] Patient Visit [facility] Advance Directives Directive Effective Date Unknown
--- OUTSIDE RECORDS SUMMARY | 2016-07-10 00:52 | XMS REPORT | Referral Summary ---
Author Author [facility] Organization [facility] Address Unknown Phone Unavailable Care Team Providers Care Cad Programmer Name Role Phone Sanket Villalpando Primary Care Physician [phone] Encounter [facility] Date(s): 06/22/15 - 06/22/15 [facility] [address], [place] [address] Discharge Diagnosis: Primary osteoarthritis of right [...] Diagnosis Body Site Arthrocentesis, aspiration and/or injection, 06/22/15 major joint or bursa (eg, shoulder, hip, knee, subacromial bursa); without ultrasound guidance L TKA [facility] 02/06/15 R KNEE PMM W/CHONDROPLASTY [facility] 03/01/13 Total hip replacement, right 11/07/10 Appendectomy Dilation and curettage Hammer toe operation Hysterectomy Tonsillectomy 1M17.12 OA L KNEE [facility] 05/07/2015 Social History Social History Type Response Smoking Status Current every day smoker; Type: Cigarettes Assessment and Plan Extracted from: Title: Office Visit Note Author: Black Swartz APRN Date: 06/22/15 Assessment/Plan 1.Primary osteoarthritis of right knee Reviewed radiograph bilateral standing knee taken February 20, 2015. Patient does have end-stage arthritis right knee with complete loss of lateral joint space. Patient states that her worst area pain in the right knee has medial joint line pain, however he does report some diffuse tenderness throughoutthe right knee. Patient reports right knee pain is worse with activity. Patientstates she does understand that itwould take a knee replacement surgery to definitively treat the arthritis in the right knee. Patient states that she has not accruedenough time off at work to have another surgeryat this time. Patient also reports that her did have recent injury to his pelvisand more [facility] Patient is here seeking relief from her right knee pain. Recommendation is made for right knee articular steroid injection. Patient is in agreement with this plan. Patient did ask about obtainingsome narcotic pain medication. Discussed with the patient thatnormally wedo not provide narcotic pain medication for chronic pain issues. Patient voiced understanding. Instructed the patient towearthe hinged knee sleeve she has at home when she is up ambulating. Patient will follow-up on a as-needed basis. Patientstates that hopefully the near futureshe canmake a decision regardingproceeding withsurgical treatment of the right knee. Patient will call with any questions or concerns regarding care and treatment of her right knee. Patient is in agreement with this plan. Procedure note: After written informed consent was obtained for a right knee intra-articular steroid injection, the patient was placed in a sitting position. The injection site was cleaned with three Betadine swabs. 3 mL of one percent plain lidocaine was injected using a 25-gauge needle into the right anterolateral knee injection site. After this local had set up, a mixture of 80mg of Kenalog and 3 mL of half percent plain Bupivacaine was injected using a 20-gauge spinal needle into the right intra-articular space. Sterile technique was used throughout the procedure. The injection site was cleaned with alcohol and a Band -Aid was applied. The patient tolerated the procedure without difficulty. The patient was advised to contact our office if this injection does not bring some relief. Ordered: bupivacaine, 3 mL=, IntraARTICULAR , Once, First Dose: 06/22/15 16:00:00 CDT, Stop Date: 06/22/15 16:00:00 CDT, [facility] [id number], Form: Injection triamcinolone, 2 mL, IntraARTICULAR, Once, First Dose: 06/22/15 16:00:00 CDT, Stop Date: 06/22/15 16:00:00 CDT, [facility] [id number], Form: Injection Arthro/Asp Major Joint Inj (Shoulder, Hip, Knee) [id number]
--- OUTSIDE RECORDS SUMMARY | 2016-07-10 00:52 | XMS REPORT | Referral Summary ---
Author Author [facility] Organization [facility] Address Unknown Phone Unavailable Care Team Providers Care Street Cleaner Name Role Phone Sanket Villalpando Primary Care Physician [phone] Encounter [facility] [id number] Date(s): 02/20/15 - 02/20/15 [facility] [address] [place], [place] [address] Discharge Diagnosis: Encounter for orthopedic follow-up care Discharge Diagnosis: Presence of left artificial knee joint Discharge Diagnosis: Encounter for orthopedic follow-up care Discharge Disposition: 01-Home or Self Care Attending Physician: Black Swartz APRN Admitting Physician: Black Swartz APRN Vital Signs Most recent to 1 oldest [Reference Range]: Respiratory Rate 20 br/min [14-20 br/min] (02/20/15 10:45 AM) Problem List Condition Effective Dates Status [...] 01/13/14 Status: Ordered Percocet 7.5/325 oral tablet 1-2 tabs, Oral, q4hr, as needed for pain, Max 8 tabs per 24 hours, # 60 tabs, 0 Refill(s) Start Date: 02/20/15 Stop Date: 02/27/15 Status: Ordered Prevacid 30 mg oral delayed [...] Date Related Diagnosis Body Site L TKA [facility] 02/06/15 R KNEE PMM W/CHONDROPLASTY [facility] 03/01/13 Total hip replacement, right 11/07/10 Appendectomy Dilation and curettage Hammer toe operation Hysterectomy Tonsillectomy 1M17.12 OA L KNEE [facility] 05/07/2015 Social History Social History Type Response Smoking Status Current every day smoker; Type: Cigarettes Assessment and Plan Extracted from: Title: Ambulatory Patient Education Author: Black Swartz APRN Date : 02/20/15 Family Medicine Knee Rehabilitation, Guidelines Following Surgery Results after knee surgery are often greatly improved when you follow the exercise, range of motion and muscle strengthening exercises prescribed by your doctor. Safety measures are also important to protect the knee from further injury. Any time any of these exercises cause you to have increased pain or swelling in your knee joint, decrease the amount until you are comfortable again and slowly increase them. If you have problems or questions, call your caregiver or physical therapist for advice. HOME CARE INSTRUCTIONS Remove items at home which could result in a fall. This includes throw rugs or furniture in walking pathways. Continue medications as instructed. You may shower or take tub baths when your monie or stitches are removed or as instructed. Walk using crutches or walker as instructed. Put weight on your legs and walk as much as is comfortable. You may resume a sexual relationship in one month or when given the OK by your doctor. Return to work as instructed by your doctor. Do not drive a car for 6 weeks or as instructed. Wear elastic stockings until instructed not to. Make sure you keep all of your appointments after your operation with all of your doctors and caregivers. RANGE OF MOTION AND STRENGTHENING EXERCISES Rehabilitation of the knee is important following a knee injury or an operation. After just a few days of immobilization, the muscles of the thigh which control the knee become weakened and shrink (atrophy). Knee exercises are designed to build up the tone and strength of the thigh muscles and to improve knee motion. Often times heat used for twenty to thirty minutes before working out will loosen up your tissues and help with improving the range of motion. These exercises can be done on a training (exercise) mat, on the floor, on a table or on a bed. Use what ever works the best and is most comfortable for you Knee exercises include: Leg Lifts - While your knee is still immobilized in a splint or cast, you can do straight leg raises. Lift the leg to 60 degrees, hold for 3 sec, and slowly lower the leg. Repeat 10-20 times 2-3 times daily. Perform this exercise against resistance later as your knee gets better. Quad and Hamstring Sets - Tighten up the muscle on the front of the thigh ( Quad) and hold for 5-10 sec. Repeat this 10-20 times hourly. Hamstring sets are done by pushing the foot backward against an object and holding for 5-10 sec. Repeat as with quad sets. Resistance and Weight exercises - After your knee no longer needs to be immobilized, progressive motion, resistance, and weight lifting exercises should be performed. This is best done under the guidance of a physical therapist. You may safely start with wall squats; with your feet 10 inches from a wall, place your back flat against the wall and lower your trunk about 6 inches until you feel work in your thighs. Hold 20-40 seconds, then rise slowly. Do 3-6 repetitions 2-3 times daily. Endurance Training - Bicycle and walking are helpful in restoring strength and endurance to the leg. A rehabilitation program following serious knee injuries can speed recovery and prevent re-injury in the future due to weakened muscles. Contact your doctor or a physical therapist for more information on knee rehabilitation. MAKE SURE YOU: Understand these instructions. Will watch your condition. Will get help right away if you are not doing well or get worse. Document Released: 03/10/2006 Document Revised: 06/01/2012 Document Reviewed: ExitCare Patient Information 2015 [facility], [facility]. This information is not intended to replace advice given to you by your health care provider. Make sure you discuss any questions you have with your health care provider. No follow up information was provided.
--- OUTSIDE RECORDS SUMMARY | 2016-07-10 00:52 | XMS REPORT | Continuity of Care Document ---
Author Author [facility] Organization [facility] Address Unknown Phone Unavailable Allergies Active Description Code Type Severity Reaction Onset Reported/Identified Relationship to Patient Clinical Status Yes varenicline varenicline Drug Allergy Severe HIVES 08/28/2015 Yes erythromycin base erythromycin base Drug Allergy Moderate HIVES 08/28/2015 Yes codeine codeine Drug Allergy Mild NAUSEA,VOMITING 08/28/2015 Yes varenicline varenicline Drug Allergy Mild HIVES 08/28/2015 Medications Problems Date Dx Coded Attending Type Code Diagnosis Diagnosed By 02/06/2015 Frank Liu MD E66.9 OBESITY, UNSPECIFIED 02/06/2015 Frank Liu MD F10.99 ALCOHOL USE, UNSP WITH UNSPECIFIED ALCOHOL- INDUCED 02/06/2015 Frank Liu MD F17.200 NICOTINE DEPENDENCE, UNSPECIFIED, UNCOMPLICATED 02/06/2015 Frank Liu MD F41.9 ANXIETY DISORDER, UNSPECIFIED 02/06/2015 Frank Liu MD I10 ESSENTIAL (PRIMARY) HYPERTENSION 02/06/2015 Frank Liu MD K21.9 GASTRO-ESOPHAGEAL REFLUX DISEASE WITHOUT ESOPHAGIT 02/06/2015 Frank Liu MD M17.12 UNILATERAL PRIMARY OSTEOARTHRITIS, LEFT KNEE 02/06/2015 Frank Liu MD M21.062 VALGUS DEFORMITY, NOT ELSEWHERE CLASSIFIED, LEFT K 02/06/2015 Frank Liu MD M25.562 PAIN IN LEFT KNEE 02/06/2015 Frank Liu MD 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, NEC, LEFT LOWER LEG 02/06/2015 Frank Liu MD M87.9 OSTEONECROSIS, UNSPECIFIED 02/06/2015 Frank Liu MD Z68.31 BODY MASS INDEX (BMI) 31.0-31.9, ADULT 02/06/2015 Frank Liu MD Z88.1 ALLERGY STATUS TO OTHER ANTIBIOTIC AGENTS STATUS 02/06/2015 Frank Liu MD Z90.710 ACQUIRED ABSENCE OF BOTH CERVIX AND UTERUS 08/28/2015 Frank Liu MD Z01.812 ENCOUNTER FOR PREPROCEDURAL LABORATORY EXAMINATION 09/04/2015 Frank Liu MD M17.11 UNILATERAL PRIMARY OSTEOARTHRITIS, RIGHT 09/04/2015 Frank Liu MD M17.11 UNILATERAL PRIMARY OSTEOARTHRITIS, RIGHT Procedures Code Description Performed By Performed On 80.6 EXCIS KNEE SEMILUN CARTL Frank Liu MD 03/01/2013 80.76 KNEE SYNOVECTOMY Frank Liu MD 03/01/2013 81.47 OTHER REPAIR OF KNEE Frank Liu MD 03/01/2013 [id number] EXCISION OF LEFT KNEE JOINT, OPEN APPROACH Frank Liu MD 02/06/2015 [id number] REPLACE OF L KNEE JT WITH SYNTH SUB, CEMENT, OPEN Frank Liu MD 02/06/2015 Results Test Result Range URINALYSIS WITH MICROSCOPIC - 02/24/13 15:03 UA LEUKOCYTE ESTERASE DIPSTICK NEGATIVE NEGATIVE UA NITRITE DIPSTICK NEGATIVE NEGATIVE UA PROTEIN DIPSTICK NEGATIVE NEGATIVE UA GLUCOSE DIPSTICK NEGATIVE NEGATIVE UA KETONE DIPSTICK NEGATIVE NEGATIVE UA UROBILINOGEN DIPSTICK NORMAL NORMAL UA BILIRUBIN DIPSTICK NEGATIVE NEGATIVE UA BLOOD DIPSTICK NEGATIVE NEGATIVE UA BACTERIA 1+ NEGATIVE UA EPITHELIAL CELLS 1+ epi/hpf 0 - 1+ UA RBC 0-3 rbc/hpf 0 - 3 UA VOLUME FOR EXAM 12.0 mL (12mL STD) UA WBC 0-1 wbc/hpf 0 - 5 UA SPECIFIC GRAVITY 1.008 1.015-1.025 UR PH 7.0 5.0-7.0 CBC W/DIFF - 02/24/13 15:07 BASOPHIL # 0.0 k/cumm 0.0-0.2 BASOPHIL % 1 % 0-1 EOSINOPHIL # 0.3 k/cumm 0.1-0.5 EOSINOPHIL % 5 % 2-4 GRANULOCYTE # 3.6 k/cumm 2.0-9.0 GRANULOCYTE % 64 % 50-75 LYMPHOCYTE # 1.3 k/cumm 1.0-4.0 LYMPHOCYTE % 24 % 20-30 MEAN CELL HGB 33.3 pg 27.0-33.0 MEAN CELL HGB CONCENTRATION 34.2 g/dL 32.0-37.0 MEAN CELL VOLUME 97.5 fl 80.0-100.0 MONOCYTE # 0.3 k/cumm 0.1-1.0 MONOCYTE % 6 % 4-6 RED BLOOD CELL 3.93 m/cumm 4.00-6.00 RED CELL DISTRIBUTION WIDTH 11.8 % 11.0- 15.6 WHITE BLOOD CELL 5.6 k/cumm 5.0-10.0 HEMOGLOBIN 13.1 gm/dL 12.0-16.0 HEMATOCRIT 38.3 % 37.0-47.0 PLATELET COUNT 199 k/cumm 150-400 SED RATE - 02/24/13 15:07 SED RATE 5 mm/hr 0-15 PROTHROMBIN TIME WITH INR - 02/24/13 15:07 INTERNATIONAL NORMAL RATIO 0.9 0.9-1.1 PROTHROMBIN TIME 9.9 sec 9.3-12.2 PARTIAL THROMBOPLASTIN TIME - 02/24/13 15:07 PARTIAL THROMBOPLASTIN TIME 34 sec 24-36 METABOLIC PANEL, BASIC - 02/24/13 15:07 POTASSIUM 4.5 mmol/L 3.5-5.3 EST GFR (MDRD) > 60 mL/min > 59 ANION GAP 8 mmol/L 5-15 EST CrCl (CG) 53 mL/min > 59 GLUCOSE 89 mg/dL 70-99 CALCIUM 10.1 mg/dL 8.5-10.1 BLOOD UREA NITROGEN 17 mg/dL 7-20 CREATININE 0.9 mg/dL 0.6-1.0 SODIUM 139 mmol/L 135-148 CHLORIDE 101 mmol/L 98-110 CARBON DIOXIDE 30 mmol/L 21-32 CBC W/DIFF - 01/31/15 09:44 BASOPHIL # 0.0 k/cumm 0.0-0.2 BASOPHIL % 1 % 0-1 EOSINOPHIL # 0.2 k/cumm 0.1-0.5 EOSINOPHIL % 4 % 2-4 GRANULOCYTE # 2.6 k/cumm 2.0-9.0 GRANULOCYTE % 57 % 50-75 LYMPHOCYTE # 1.4 k/cumm 1.0-4.0 LYMPHOCYTE % 32 % 20-30 MEAN CELL HGB 33.1 pg 27.0-33.0 MEAN CELL HGB CONCENTRATION 33.9 g/dL 32.0-37.0 MEAN CELL VOLUME 97.5 fl 80.0-100.0 MONOCYTE # 0.3 k/cumm 0.1-1.0 MONOCYTE % 7 % 4-6 RED BLOOD CELL 4.02 m/cumm 4.00-6.00 RED CELL DISTRIBUTION WIDTH 12.6 % 11.0- 15.6 WHITE BLOOD CELL 4.6 k/cumm 5.0-10.0 HEMOGLOBIN 13.3 gm/dL 12.0-16.0 HEMATOCRIT 39.2 % 37.0-47.0 PLATELET COUNT 187 k/cumm 150-400 SED RATE - 01/31/15 09:44 SED RATE 9 mm/hr 0-15 PROTHROMBIN TIME WITH INR - 01/31/15 09:44 INTERNATIONAL NORMAL RATIO 0.9 0.9-1.1 PROTHROMBIN TIME 9.8 sec 9.3-12.2 PARTIAL THROMBOPLASTIN TIME - 01/31/15 09:44 PARTIAL THROMBOPLASTIN TIME 38 sec 23-39 METABOLIC PANEL, BASIC - 01/31/15 09:44 POTASSIUM 4.2 mmol/L 3.5-5.3 EST GFR (MDRD) > 60 mL/min > 59 ANION GAP 6 mmol/L 5-15 EST CrCl (CG) > 60 mL/min > 59 GLUCOSE 78 mg/dL 70-99 CALCIUM 9.0 mg/dL 8.5-10.1 BLOOD UREA NITROGEN 11 mg/dL 7-20 CREATININE 0.6 mg/dL 0.6-1.0 SODIUM 136 mmol/L 135-148 CHLORIDE 100 mmol/L 98-110 CARBON DIOXIDE 30 mmol/L 21-32 URINALYSIS, ROUTINE - 01/31/15 09:44 UA LEUKOCYTE ESTERASE DIPSTICK NEGATIVE NEGATIVE UA NITRITE DIPSTICK NEGATIVE NEGATIVE UA PROTEIN DIPSTICK NEGATIVE NEGATIVE UA GLUCOSE DIPSTICK NEGATIVE NEGATIVE UA KETONE DIPSTICK NEGATIVE NEGATIVE UA UROBILINOGEN DIPSTICK NORMAL NORMAL UA BILIRUBIN DIPSTICK NEGATIVE NEGATIVE UA BLOOD DIPSTICK NEGATIVE NEGATIVE UA SPECIFIC GRAVITY 1.006 1.015-1.025 UR PH 7.0 5.0-7.0 MRSA SURVEILLANCE SCREEN - 01/31/15 09:44 Microbiology CBC - 02/07/15 05:59 MEAN CELL HGB 33.4 pg 27.0-33.0 MEAN CELL HGB CONCENTRATION 34.2 g/dL 32.0-37.0 MEAN CELL VOLUME 97.9 fl 80.0-100.0 RED BLOOD CELL 3.29 m/cumm 4.00-6.00 RED CELL DISTRIBUTION WIDTH 12.5 % 11.0- 15.6 WHITE BLOOD CELL 4.5 k/cumm 5.0-10.0 HEMOGLOBIN 11.0 gm/dL 12.0-16.0 HEMATOCRIT 32.2 % 37.0-47.0 PLATELET COUNT 187 k/cumm 150-400 METABOLIC PANEL, COMPREHN - 02/07/15 05:59 POTASSIUM 4.3 mmol/L 3.5-5.3 EST GFR (MDRD) > 60 mL/min > 59 ANION GAP 8 mmol/L 5-15 EST CrCl (CG) > 60 mL/min > 59 GLUCOSE 145 mg/dL 70-99 CALCIUM 7.4 mg/dL 8.5-10.1 BLOOD UREA NITROGEN 9 mg/dL 7-20 CREATININE 0.7 mg/dL 0.6-1.0 SODIUM 133 mmol/L 135-148 CHLORIDE 98 mmol/L 98-110 AST/SGOT 16 Units/L 10-37 ALT/SGPT 19 Units/L < 66 CARBON DIOXIDE 27 mmol/L 21-32 TOTAL PROTEIN 5.8 gm/dL 6.4-8.2 ALBUMIN 3.0 gm/dL 3.4-5.0 BILI TOTAL 0.2 mg/dL 0.0-1.0 ALKALINE PHOSPHATASE TOTAL 63 IU/L 45- 117 CBC - 02/08/15 05:41 MEAN CELL HGB 32.9 pg 27.0-33.0 MEAN CELL HGB CONCENTRATION 33.1 g/dL 32.0-37.0 MEAN CELL VOLUME 99.4 fl 80.0-100.0 RED BLOOD CELL 3.28 m/cumm 4.00-6.00 RED CELL DISTRIBUTION WIDTH 12.5 % 11.0- 15.6 WHITE BLOOD CELL 6.0 k/cumm 5.0-10.0 HEMOGLOBIN 10.8 gm/dL 12.0-16.0 HEMATOCRIT 32.6 % 37.0-47.0 PLATELET COUNT 196 k/cumm 150-400 CBC - 02/09/15 05:51 MEAN CELL HGB 32.7 pg 27.0-33.0 MEAN CELL HGB CONCENTRATION 33.1 g/dL 32.0-37.0 MEAN CELL VOLUME 98.6 fl 80.0-100.0 RED BLOOD CELL 3.46 m/cumm 4.00-6.00 RED CELL DISTRIBUTION WIDTH 12.6 % 11.0- 15.6 WHITE BLOOD CELL 6.1 k/cumm 5.0-10.0 HEMOGLOBIN 11.3 gm/dL 12.0-16.0 HEMATOCRIT 34.1 % 37.0-47.0 PLATELET COUNT 208 k/cumm 150-400 MRSA SURVEILLANCE SCREEN - 08/28/15 15:10 Microbiology URINALYSIS, NO REFLEX CULTURE - 08/28/15 15:15 UA LEUKOCYTE ESTERASE DIPSTICK NEGATIVE NEGATIVE UA NITRITE DIPSTICK NEGATIVE NEGATIVE UA PROTEIN DIPSTICK NEGATIVE NEGATIVE UA GLUCOSE DIPSTICK NEGATIVE NEGATIVE UA KETONE DIPSTICK NEGATIVE NEGATIVE UA UROBILINOGEN DIPSTICK NORMAL NORMAL UA BILIRUBIN DIPSTICK NEGATIVE NEGATIVE UA BLOOD DIPSTICK NEGATIVE NEGATIVE UA SPECIFIC GRAVITY 1.011 1.015-1.025 UR PH 6.0 5.0-7.0 CBC W/DIFF - 08/28/15 15:22 BASOPHIL # 0.0 k/cumm 0.0-0.2 BASOPHIL % 1 % 0-1 EOSINOPHIL # 0.2 k/cumm 0.1-0.5 EOSINOPHIL % 5 % 2-4 GRANULOCYTE # 2.5 k/cumm 2.0-9.0 GRANULOCYTE % 59 % 50-75 LYMPHOCYTE # 1.2 k/cumm 1.0-4.0 LYMPHOCYTE % 28 % 20-30 MEAN CELL HGB 35.0 pg 27.0-33.0 MEAN CELL HGB CONCENTRATION 34.9 g/dL 32.0-37.0 MEAN CELL VOLUME 100.3 fl 80.0-100.0 MONOCYTE # 0.3 k/cumm 0.1-1.0 MONOCYTE % 8 % 4-6 RED BLOOD CELL 4.00 m/cumm 4.00-6.00 RED CELL DISTRIBUTION WIDTH 12.3 % 11.0- 15.6 WHITE BLOOD CELL 4.2 k/cumm 5.0-10.0 HEMOGLOBIN 14.0 gm/dL 12.0-16.0 HEMATOCRIT 40.1 % 37.0-47.0 PLATELET COUNT 169 k/cumm 150-400 SED RATE - 08/28/15 15:22 SED RATE 11 mm/hr 0-15 PROTHROMBIN TIME WITH INR - 08/28/15 15:22 INTERNATIONAL NORMAL RATIO 0.8 0.9-1.1 PROTHROMBIN TIME 9.3 sec 9.3-12.2 PARTIAL THROMBOPLASTIN TIME - 08/28/15 15:22 PARTIAL THROMBOPLASTIN TIME 42 sec 23-39 METABOLIC PANEL, BASIC - 08/28/15 15:22 POTASSIUM 3.9 mmol/L 3.5-5.3 EST GFR (MDRD) > 60 mL/min > 59 ANION GAP 8 mmol/L 5-15 EST CrCl (CG) > 60 mL/min > 59 GLUCOSE 89 mg/dL 70-99 CALCIUM 9.1 mg/dL 8.5-10.1 BLOOD UREA NITROGEN 9 mg/dL 7-20 CREATININE 0.5 mg/dL 0.6-1.0 SODIUM 133 mmol/L 135-148 CHLORIDE 98 mmol/L 98-110 CARBON DIOXIDE 27 mmol/L 21-32 CBC - 09/05/15 05:21 MEAN CELL HGB 34.4 pg 27.0-33.0 MEAN CELL HGB CONCENTRATION 33.4 g/dL 32.0-37.0 MEAN CELL VOLUME 102.9 fl 80.0-100.0 RED BLOOD CELL 3.08 m/cumm 4.00-6.00 RED CELL DISTRIBUTION WIDTH 12.6 % 11.0- 15.6 WHITE BLOOD CELL 7.2 k/cumm 5.0-10.0 HEMOGLOBIN 10.6 gm/dL 12.0-16.0 HEMATOCRIT 31.7 % 37.0-47.0 PLATELET COUNT 150 k/cumm 150-400 METABOLIC PANEL, [facility] - 09/05/15 05:21 POTASSIUM 3.7 mmol/L 3.5-5.3 EST GFR (MDRD) > 60 mL/min > 59 ANION GAP 7 mmol/L 5-15 EST CrCl (CG) > 60 mL/min > 59 GLUCOSE 99 mg/dL 70-99 CALCIUM 7.8 mg/dL 8.5-10.1 BLOOD UREA NITROGEN 11 mg/dL 7-20 CREATININE 0.6 mg/dL 0.6-1.0 SODIUM 132 mmol/L 135-148 CHLORIDE 96 mmol/L 98-110 AST/SGOT 29 Units/L 10-37 ALT/SGPT 29 Units/L < 66 CARBON DIOXIDE 29 mmol/L 21-32 TOTAL PROTEIN 6.3 gm/dL 6.4-8.2 ALBUMIN 3.5 gm/dL 3.4-5.0 BILI TOTAL 0.4 mg/dL 0.0-1.0 ALKALINE PHOSPHATASE TOTAL 61 IU/L 45- 117 CBC - 09/06/15 05:44 MEAN CELL HGB 34.7 pg 27.0-33.0 MEAN CELL HGB CONCENTRATION 33.9 g/dL 32.0-37.0 MEAN CELL VOLUME 102.3 fl 80.0-100.0 RED BLOOD CELL 3.00 m/cumm 4.00-6.00 RED CELL DISTRIBUTION WIDTH 12.3 % 11.0- 15.6 WHITE BLOOD CELL 6.9 k/cumm 5.0-10.0 HEMOGLOBIN 10.4 gm/dL 12.0-16.0 HEMATOCRIT 30.7 % 37.0-47.0 PLATELET COUNT 158 k/cumm 150-400 METABOLIC PANEL, BASIC - 09/06/15 05:44 POTASSIUM 4.0 mmol/L 3.5-5.3 EST GFR (MDRD) > 60 mL/min > 59 ANION GAP 8 mmol/L 5-15 EST CrCl (CG) > 60 mL/min > 59 GLUCOSE 117 mg/dL 70-99 CALCIUM 7.9 mg/dL 8.5-10.1 BLOOD UREA NITROGEN 7 mg/dL 7-20 CREATININE 0.5 mg/dL 0.6-1.0 SODIUM 134 mmol/L 135-148 CHLORIDE 99 mmol/L 98-110 CARBON DIOXIDE 27 mmol/L 21-32 Encounters ACCT No. Visit Date/Time Discharge Status Pt. Type Provider Facility Loc./Unit Complaint [id number] 02/17/2013 08:46:00 02/17/2013 23 :59:59 CLS Outpatient
--- NOTE | 2016-07-10 01:54 | NUR ---
SPOUSE PT HERE PT STATES IT IS OKAY FOR HIM TO COME BACK TO ROOM
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
[2016-07-10 02:11] LABS: BASOPHILS % (AUTO) 0.3 % (0-2); EOSINOPHILS # (AUTO) 0.2 T/MM3 (0-0.5); EOSINOPHILS % (AUTO) 4.4 % (0-4); HCT - HEMATOCRIT 35.5 % (36-46); HGB - HEMOGLOBIN 12.1 GM/DL (12-16); IMMATURE GRANULOCYTE # (AUTO) 0.01 T/MM3 (0.00-0.03); IMMATURE GRANULOCYTE % (AUTO) 0.3 % (0.0-0.5); LYMPHOCYTES # (AUTO) 0.6 T/MM3 (1-4.8); LYMPHOCYTES % (AUTO) 16.1 % (23-45); MEAN CORPUSCULAR HGB 35.7 UUG (26-34); MEAN CORPUSCULAR HGB CONC(MCHC 34.1 GM/DL (31-37); MEAN CORPUSCULAR VOLUME 104.7 UM3 (80-100); MONOCYTES # (AUTO) 0.3 T/MM3 (0-0.8); MONOCYTES % (AUTO) 8.2 % (0-9.0); NEUTROPHILS #(AUTO)-ABSOLUTE 2.4 T/MM3 (1.8-7.7); NEUTROPHILS % (AUTO) 70.7 % (33-66); RED BLOOD COUNT 3.39 M/MM3 (4.00-5.20); WBC - WHITE BLOOD COUNT 3.4 T/MM3 (4.5-11.0)
[2016-07-10 02:14] LABS: BLOOD, URINE NEGATIVE (NEGATIVE); COLOR,URINE YELLOW (YELLOW); LEUKOCYTE ESTERASE ,URINE NEGATIVE (NEGATIVE); NITRITE,URINE NEGATIVE (NEGATIVE); UROBILINOGEN,URINE 0.2 EU/DL (NORMAL)
--- NOTE | 2016-07-10 02:19 | NUR ---
SPOUSE PT SENDING HOME TO GET HER CIGARETTES. PT AWARE THAT SHE CAN'T SMOKE HERE AT THE HOSPITAL.
[2016-07-10 02:23] LABS: AMPHETAMINE SCREEN,URINE NEGATIVE; BARBITURATE SCREEN,URINE NEGATIVE; BENZODIAZEPINES SCREEN,URINE POSITIVE; COCAINE SCREEN,URINE NEGATIVE; METHADONE SCREEN, URINE NEGATIVE; METHAMPHETAMINE SCREEN, URINE NEGATIVE; OPIATE SCREEN,URINE POSITIVE
[2016-07-10 02:23] LABS: ACETAMINOPHEN < 10 UG/ML (10-30); ANION GAP 10 MEQ/L (5-15); BUN/CREATININE RATIO 20 RATIO (6-26); CHLORIDE 95 MEQ/L (98-107); CO2 - CARBON DIOXIDE 30 MEQ/L (22-30); CREATININE 0.7 MG/DL (0.7-1.2); ETHANOL <10 MG/DL (<10); GLOMERULAR FILTRATION RATE 84; GLUCOSE 96 MG/DL (65-110); POTASSIUM 4.3 MEQ/L (3.6-5); SALICYLATE < 1.0 MG/DL (2-20); SODIUM 135 MEQ/L (134-144)
[2016-07-10 02:24] LABS: CANNABINOID SCREEN,URINE NEGATIVE; PHENCYCLIDINE SCREEN,URINE NEGATIVE; TRICYCLIC ANTIDEPRESSANT,URINE NEGATIVE
--- OUTSIDE RECORDS SUMMARY | 2016-07-10 02:37 | XMS REPORT | Continuity of Care Document ---
Author Author [facility] Organization [facility] Address Unknown Phone Unavailable Allergies Active [...] REPAIR OF KNEE Frank Liu MD 03/01/2013 [id number] EXCISION OF LEFT KNEE JOINT, OPEN APPROACH Frank Liu MD 02/06/2015 [id number] REPLACE OF L KNEE JT WITH SYNTH [...] PLATELET COUNT 150 k/cumm 150-400 METABOLIC PANEL, [facility] - 09/05/15 05:21 POTASSIUM 3.7 mmol/L [...] Status Pt. Type Provider Facility Loc./Unit Complaint [id number] 02/17/2013 08:46:00 02/17/2013 23 :59:59 CLS Outpatient
--- NOTE | 2016-07-10 02:56 | NUR ---
STATUS PT WANTING TO WALK OUTSIDE TO SMOKE EXPLAINED THAT SHE CAN'T LEAVE THE ED AND THIS IS A SMOKE FREE CAMPUS PT RETURNS TO ROOM BUT IS ANGRY SHE CAN'T GO OUTSIDE
[2016-07-10 03:18] LABS: THYROID STIM HORMONE-TSH 0.15 MIU/L (0.47-4.68)
--- NOTE | 2016-07-10 03:32 | NUR ---
HOME ASKED PT IF SHE FEELS SAFE TO GO HOME MAGGIIGHT STATES SHE DOES AND SHE WANTS TO GO REPORTS THINGS WILL COOL OFF NOW AND SHE WILL BE FINE SHE REPORTS SHE DOES HAVE SOMEONE THAT IS AN OUTLET FOR HER WHEN SHE NEEDS TO TALK OR JUST TO GET AWAY FOR AWHILE. REMINDED HER THAT THE POLICE AND/OR 911 IS ALWAYS AVAILABLE FOR HER AND SHE CAN ALSO TALK WITH HER PCP OR COME TO THE ED IF SHE IS AT RISK OR NEEDS A SAFE PLACE TO GO. PT STATES SHE UNDERSTANDS ALL THIS, BUT SHE WANTS TO GO HOME
--- NOTE | 2016-07-10 03:36 | NUR ---
INSTRUCTIONS DISMISSAL INSTRUCTIONS GIVEN TO PT VERBALIZED UNDERSTANDING OF ALL
--- NOTE | 2016-07-10 03:39 | NUR ---
DISMISS PT DISMISSED AMBULATORY WITH SPOUSE
[2016-07-10 03:53] VITALS: BP 169/95; PULSE 90; RESP 18; TEMP 97.9; O2SAT 98; Ht 154.9 cm; Wt 69.9 kg
--- NOTE | 2016-07-10 08:22 | DI ---
Indication: ITS.REASON: Medical clearance PROCEDURE: CHEST 1 VIEW: Encounter: Initial Comparison: None FINDINGS: The lungs are clear. There is no abnormal airspace opacity, pleural effusion or pneumothorax identified. The heart size, pulmonary vasculature and mediastinum are within normal limits. Mild scoliosis IMPRESSION: No acute cardiopulmonary abnormality. .
== END 2016-07-10 03:39 | disposition home or self-care (01) ==
LOC: ED 00:46
DX: F43.23 Adjustment disorder with mixed anxiety and depressed mood (principal); F10.10 Alcohol abuse, uncomplicated; Y90.9 Presence of alcohol in blood, level not specified; Z63.9 Problem related to primary support group, unspecified; S40.022A Contusion of left upper arm, initial encounter; S40.021A Contusion of right upper arm, initial encounter; S00.83XA Contusion of other part of head, initial encounter; X58.XXXA Exposure to other specified factors, initial encounter; Y93.9 Activity, unspecified; Y92.9 Unspecified place or not applicable; Y99.8 Other external cause status; Z79.899 Other long term (current) drug therapy
CPT/HCPCS: 36415; 80048; 80306; 80307; 81003; 84443; 85025

== ENCOUNTER 2017-04-24 01:26 | Inpatient (IN) ==
--- NOTE | 2017-04-24 01:37 | Emergency Department Report ---
Fall HPI - General Stated Complaint: fall Time Seen by Provider: 04/24/17 01:28 Source: patient, EMS Mode of arrival: EMS Limitations: no limitations - History of Present Illness HPI Narrative: Patient returns by EMS for another fall tonight. Patient was seen earlier today , for multiple falls, advised that she had significantly low sodium and that she should come into the hospital. Patient refused, stating at the time that she had puppies to take care of, and that [facility] as were her last year. Currently patient states she has had no head injury, and no other injury besides hitting a box in the right posterior ribs. Patient believes she might of broken a rib. On questioning, patient states that she has not had any alcohol to drink for the past 3 days, and that she is now ready to come into the hospital because she knows that she needs treatment. - Related Data Home Medications Medication Instructions Recorded Confirmed Pseudoephedrine HCl [Sudafed 12 120 mg PO DAILY #0 02/25/12 04/23/17 Hour] Mapap ES 500 mg capsule 1,000 mg PO HS cap 09/06/16 04/23/17 Ascorbic Acid [Vitamin C] 500 mg PO DAILY 04/23/17 04/23/17 Biotin/Calcium Carbonate [Biotin 10,000 mcg PO DAILY 04/23/17 04/23/17 800 Mcg Tablet] Cetirizine [Zyrtec] 10 mg PO DAILY 04/23/17 04/23/17 Citalopram [Celexa] 40 mg PO DAILY 04/23/17 04/23/17 Tramadol [Ultram] 50 mg PO QID PRN 04/23/17 04/23/17 Vitamin E 1,000 unit PO DAILY 04/23/17 04/23/17 Previous Rx's Medication Instructions Recorded Mobic (Meloxicam) 15 mg tablet 15 mg PO DAILY #90 tab 10/03/16 Prilosec (Omeprazole) 40 mg 40 mg PO QAM #90 cap 11/12/16 capsule,delayed release Wellbutrin SR (bupropion HCl SR) 150 mg PO BID #180 tab 11/12/16 150 mg tablet,12 hr Cozaar (losartan) 25 mg tablet 25 mg PO BID #180 tab 02/05/17 hydrochlorothiazide 25 mg tablet 12.5 mg PO DAILY #45 tab 03/26/17 Bactrim DS (sulfamethoxazole 800 1 tab PO BID #10 tab 04/21/17 mg-trimethoprim 160 mg) tablet oseltamivir 75 mg capsule 75 mg PO BID 5 Days #10 cap 04/21/17 Allergies Allergy/AdvReac Type Severity Reaction Status Date / Time erythromycin base Allergy Unknown Verified 04/24/17 02:17 levofloxacin [From Levaquin] Allergy Verified 04/24/17 02:17 varenicline tartrate Allergy Unknown RASH Uncoded 04/24/17 02:17 Review of Systems All systems: reviewed and negative except as stated PFSH Patient Stated Medical History Other HEENT Yes: WEARS GLASSES Hypertension Yes Bronchitis Yes Pneumonia Yes Other Respiratory Yes: INFLUENZA Gastroesophageal Reflux Yes Disease Ulcer Yes Hx Urinary Tract Infection Yes Osteoarthritis Yes Cellulitis Yes MRSA Yes: CARRIER Post Menopausal Yes Clinic Medical History Constipation (Chronic Medical) Allergic rhinitis (Chronic Medical) Tobacco abuse (Chronic Medical) Insomnia (Chronic Medical) HTN (hypertension) (Chronic Medical) Depression (Chronic Medical) Alcohol abuse (Chronic Medical) Dyspepsia (Chronic Medical) Degenerative joint disease of right hip (Chronic Medical) Chronic headaches (Chronic Medical) Surgical History: Removal of cervical lesion at age 17. Laparoscopy x2 - 1 exploratory, 1 to drain ovarian cyst. D&C's x4 due to bleeding issues. Appendectomy 1990. Vaginal hysterectomy 2003 due to pelvic floor relaxation. Ovaries left (could not be found). Right THR 03/2010. Arthroscopy R knee 2012 ([facility]). Left TKR 01/2015 ([facility]). Right TKR 08/2015 ([facility]). Cervical spinal fusion (11/26/2016) Family History: Family History Father , at age 71 CHF (congestive heart failure) Mother , at age 96 No problems noted. - Social History Smoking status: Current every day smoker Physical Exam - Limitations Limitations: no limitations - General General appearance: alert, other (moderately slurred speech) - Normal Exams: Head:: Normocephalic without trauma Eyes:: Pupils are PERRLA w/ EOMI, No scleral icterus, irritation, or foreign bodies noted ENMT:: No facial trauma, nasal exudates, pharyngeal erythema, or exudates are noted Neck:: Full range of motion, without adenopathy, JVD, bruits or thyromegaly Cardiovascular:: Regular rate and rhythm, without murmur or gallop, Pulses 2+ all extremities, capillary refill, <2 seconds all extremities Abdomen:: Bowel sounds positive, soft, non-tender, non-distended, no hepatosplenomegaly, masses or bruits noted Lymphatic:: No lymphadenopathy, or lymphedema noted Musculoskeletal:: No tenderness, or deformity noted, good range of motion, all extremities Integumentary:: No rashes, hives, or bruising noted, hair and nails, without abnormality Neurological:: Patient is alert, and oriented, cranial nerves, motor/sensory/ cerebellar, exams w/o gross deficits, to observation Psychiatric:: Patient exhibits, appropriate attention, emotion and affect - Chest Chest inspection: Present: normal inspection, symmetric chest wall rise, tenderness (8 posterior chest wall tenderness, no deformity) - Respiratory Respiratory exam: Present: normal lung sounds bilaterally. Absent: respiratory distress, wheezes, stridor, accessory muscle use, prolonged expiratory phase Course Vital Signs Temperature 98.7 F 04/24/17 01:26 Pulse Rate 84 04/24/17 01:26 Respiratory Rate 22 04/24/17 01:26 Blood Pressure 152/74 H 04/24/17 01:26 Pulse Oximetry 93 04/24/17 01:26 Temperature 98.7 F 04/24/17 01:26 Pulse Rate 84 04/24/17 01:26 Respiratory Rate 22 04/24/17 01:26 Blood Pressure 152/74 H 04/24/17 01:26 Pulse Oximetry 93 04/24/17 01:26 Fall - MDM Narrative Medical decision making narrative: Patient is given 1 L normal saline IV fluid bolus with 20 of KCl EtOH - negative CMP - persistent hyponatremia 126, hypokalemia 3.1 Rib films - right posterior ninth and 10th rib fractures Case is discussed with Dr. Bassett, we will admit the patient inpatient medical without telemetry for hyponatremia, falls, and rib fractures. Films and findings were discussed with the patient, patient continues to decline pain medication at this time - Lab Data Result diagrams: 04/24/17 02:01 Lab Results 04/24/17 Range/Units 02:01 Turbidity < 20 (0-20) Sodium 126 L (134-144) MEQ/L Potassium 3.1 L (3.6-5) MEQ/L Carbon Dioxide 24 (22-30) MEQ/L Anion Gap 10 (5-15) MEQ/L BUN 12.0 (7-17) MG/DL Creatinine 0.7 (0.7-1.2) MG/DL GFR Calculation 83 BUN/Creatinine Ratio 17 (6-26) RATIO Glucose 101 (65-110) MG/DL Calculated Osmolality 243 L (261-280) MOSM/KG Calcium 8.7 (8.4-10.2) MG/DL Total Bilirubin 0.20 (0.20-1.30) MG/DL Unconjugated Bilirubin < -0.30 L (0.00-1.1) MG/DL Icterus Index < 2 (0-7) AST 148 H (14-36) U/L ALT 67 H (9-52) U/L Alkaline Phosphatase 77 (38-126) U/L Total Protein 6.6 (6.3-8.2) G/DL Albumin 3.8 (3.5-5.0) G/DL Globulin 2.8 (2.4-3.6) G/DL Albumin/Globulin Ratio 1.4 (1.1-2.2) RATIO Specimen Hemolysis < 15 (0-25) Alcohol, Quantitative <10 (<10) MG/DL Disposition Clinical Impression: Hyponatremia Ribs, multiple fractures Qualifiers: Encounter type: initial encounter Fracture type: closed Laterality: right Qualified Code(s): S22.41XA - Multiple fractures of ribs, right side, initial encounter for closed fracture Disposition: 02 To [facility] Acute Care Condition: Improved Prescriptions: No Action Citalopram [Celexa] 40 mg PO DAILY Cetirizine [Zyrtec] 10 mg PO DAILY Vitamin E 1,000 unit PO DAILY Ascorbic Acid [Vitamin C] 500 mg PO DAILY Pseudoephedrine HCl [Sudafed 12 Hour] 120 mg PO DAILY #0 Tramadol [Ultram] 50 mg PO QID PRN PRN Reason: Pain Biotin/Calcium Carbonate [Biotin 800 Mcg Tablet] 10,000 mcg PO DAILY Mapap ES 500 mg capsule 1,000 mg PO HS cap Prilosec (Omeprazole) 40 mg capsule,delayed release 40 mg PO QAM #90 cap Wellbutrin SR (bupropion HCl SR) 150 mg tablet,12 hr 150 mg PO BID #180 tab oseltamivir 75 mg capsule 75 mg PO BID 5 Days #10 cap Bactrim DS (sulfamethoxazole 800 mg-trimethoprim 160 mg) tablet 1 tab PO BID #10 tab Mobic (Meloxicam) 15 mg tablet 15 mg PO DAILY #90 tab Cozaar (losartan) 25 mg tablet 25 mg PO BID #180 tab hydrochlorothiazide 25 mg tablet 12.5 mg PO DAILY #45 tab Referrals: Alexis Villalpando MD [Family Provider] - - Seen By: physician
[2017-04-24] MEDS ORDERED: NS with KCL 20 mEq 1,000 ML IV SCH (01:45)
[2017-04-24] MEDS: SALINE FLUSH 10ml SYRINGE IVF PRN ×3 (02:00→05:44)
[2017-04-24] MEDS ORDERED: HYDROCODONE/APAP 7.5 MG/325 MG TABLET PO ONE (03:02)
[2017-04-24] MEDS ORDERED: TRAMADOL 50 MG TABLET PO ONE (03:27)
[2017-04-24] MEDS ORDERED: ACETAMINOPHEN 325 MG TABLET PO PRN (03:56)
[2017-04-24] MEDS ORDERED: NALOXONE 2 MG/2 ML INJECTION PFS IVP ONE ×2 (03:56→04:00)
[2017-04-24] MEDS ORDERED: ONDANSETRON 4 MG/2 ML INJECTION IVP PRN (03:56)
[2017-04-24] MEDS ORDERED: MORPHINE SULFATE 4mg INJECTION IVP PRN (03:56)
[2017-04-24 04:27] VITALS: BMI 31.5
[2017-04-24] MEDS ORDERED: FALL RISK - PHARMACY CONSULT MC ONE (04:28)
[2017-04-24] MEDS: NS with KCL 20 mEq 1,000 ML IV SCH ×2 (04:39→15:43)
--- NOTE | 2017-04-24 04:57 | History & Physical Report ---
History of Present Illness Date: 04/24/17 Chief complaint: right rib pain HPI: This is a 66 y/o patient with a history of chronic alcohol abuse. The patient presented to her [facility] on Friday and was diagnosed with a UTI and influenza A. The patient was started on Tamiflu and Bactrim. The patient was discharged back to home. The patient has increased weakness and fell earlier today. Patient states lost her balance. The patient presented to the ED where her workup was consistent with hyponatremia. Her CXR was negative and her CT head was negative. Because of her instability the patient was recommended for admission at that time and signed out AMA to care for her 3 dogs. The patient arrived home and promptly fell again. This time landing on her right ribs. She had immediate pain and presents back to the ED where she now has diagnosed right post 9,10 rib fx without pneumothorax. The patient is willing to come into the hospital now. The patient is an abuser of alcohol and chronically drinks vodka. Patient has been sober for 4 days now and has no sx to suggest withdrawal. Review of Systems Review of systems: no headache, no change in vision, no sores in the mouth, no difficulty swallowing, no neck pain, right sided chest pain, MS in origin, occasional cough , no heart palpitations, no abdomen pain, no nausea, vomiting, no focal motor weakness, genrally weak, no other pain other than right ribs. 12 point ROS otherwise neg except for outlined above. Past Medical History Clinic Medical History Constipation (Chronic Medical) Allergic rhinitis (Chronic Medical) Tobacco abuse (Chronic Medical) Insomnia (Chronic Medical) HTN (hypertension) (Chronic Medical) Depression (Chronic Medical) Alcohol abuse (Chronic Medical) Dyspepsia (Chronic Medical) Degenerative joint disease of right hip (Chronic Medical) Chronic headaches (Chronic Medical) Surgical History: Removal of cervical lesion at age 17. Laparoscopy x2 - 1 exploratory, 1 to drain ovarian cyst. D&C's x4 due to bleeding issues. Appendectomy 1990. Vaginal hysterectomy 2003 due to pelvic floor relaxation. Ovaries left (could not be found). Right THR 03/2010. Arthroscopy R knee 2012 ([facility]). Left TKR 01/2015 ([facility]). Right TKR 08/2015 ([facility]). Cervical spinal fusion (11/26/2016) Family History: Family History Father , at age 71 CHF (congestive heart failure) Mother , at age 96 No problems noted. Family History Updates: unkown at this time - Social History Smoking status: Current every day smoker Substance use type: does not use Alcohol intake frequency: 3 or more drinks per day Last drink: days (ago) Housing: house Household members: none Current occupational status: retired Current occupational exposures/hazards: No Does patient use chewing tobacco?: No Medications Home Medications Medication Instructions Recorded Confirmed Type Pseudoephedrine HCl [Sudafed 12 120 mg PO DAILY #0 02/25/12 04/23/17 History Hour] Mapap ES 500 mg capsule 1,000 mg PO HS cap 09/06/16 04/23/17 History Ascorbic Acid [Vitamin C] 500 mg PO DAILY 04/23/17 04/23/17 History Biotin/Calcium Carbonate [Biotin 10,000 mcg PO DAILY 04/23/17 04/23/17 History 800 Mcg Tablet] Cetirizine [Zyrtec] 10 mg PO DAILY 04/23/17 04/23/17 History Citalopram [Celexa] 40 mg PO DAILY 04/23/17 04/23/17 History Tramadol [Ultram] 50 mg PO QID PRN 04/23/17 04/23/17 History Vitamin E 1,000 unit PO DAILY 04/23/17 04/23/17 History Allergies Allergy/AdvReac Type Severity Reaction Status Date / Time erythromycin base Allergy Unknown Verified 04/24/17 02:17 levofloxacin [From Levaquin] Allergy Verified 04/24/17 02:17 varenicline tartrate Allergy Unknown RASH Uncoded 04/24/17 02:17 Exam Vital Signs: Temperature 97.5 F 04/24/17 04:20 Pulse Rate 79 04/24/17 04:20 Respiratory Rate 20 04/24/17 04:20 Blood Pressure 148/67 H 04/24/17 04:20 Pulse Oximetry 94 04/24/17 04:20 Height/Weight/BMI: Height 1.55 m Weight 75.7 kg Body Mass Index 31.5 - Constitutional Present: mild distress, well nourished, well developed, average body habitus, cooperative - Routine HEENT Exam Head: Present: normocephalic, atraumatic Eye: Present: EOMI, conjunctivae pink ENT: Present: mucous membranes dry - Routine Neck Exam Present: full ROM - Routine Chest/Breast/Axilla Exam Chest wall: Present: tenderness (sig tender to right lat chest wall. per nursing. ) - Routine Respiratory Exam Comments: diminished breath sounds. no obvious rhonchi, occasional wheeze - Routine Abdominal Exam Present: soft, normoactive bowel sounds, non distended, non tender - Routine Extremities Exam Present: no edema, non tender, full ROM - Routine Back/Spine/Pelvis Exam Back/Spine: Present: full ROM - Routine Skin Exam Present: intact - Routine Neurological Exam Present: alert, oriented X3, CN II-XII intact. Absent: motor deficit - Routine Psychiatric Exam Present: normal affect, normal thought process Results - Labs CBC & Chem 7: 04/24/17 05:40 04/24/17 05:40 Labs: reviewed. will add cbc - Imaging and Cardiology Chest x-ray Additional comments: CXR demonstrated right right rib fracture CT head was neg for acute injury Assessment and Plan (1) Ribs, multiple fractures Current visit: Yes Status: Acute (2) Hyponatremia Current visit: Yes Status: Acute (3) Alcohol abuse Current visit: Yes Status: Acute (4) Tobacco abuse Current visit: No Status: Chronic (5) HTN (hypertension) Current visit: No Status: Chronic (6) Influenza A Current visit: Yes Status: Acute Assessment and Plan: 1. right rib fractures acute POA: nebs prn, iv and oral pain meds suspect undx copd. advance nebs rapidly if any indication of worsening copd. 2. hyponatremia acute POA; most likely hypovolemia. NS and repeat labs in the am. alcohol can play a role, but previous na have been reasonable 3. influenza A acute POA: tamiflu 4. recent UTI acute POA: repeat ua and tx if indicated, has recently finished bactrim 5. hypokalemia acute POA: replace and recheck 6. alcohol abuse chronic POA: CIWA. currently not withdrawing 7. tobacco abuse chronic POA: tour counselor to stop 8. HTN chronic POA: hydralazine prn DVT Prophylaxis: SCD's GI Prophylaxis: other (omeprazole) Resuscitation Status: Full Code - Time spent with patient Time with patient PN: 30 minutes - Physician Narrative Physician: Grace Bailey MD Narrative: Date: 04/24/17 Time: 1145 Dr. Bassett's note reviewed. Mrs. Leach interviewed and examined. CC: Falls/rib fractures HPI: Mrs. Leach is 66-year-old female with history of chronic alcohol abuse. She was seen in her primary care physician's office on 04/21 where she was diagnosed with influenza A and pansensitive Escherichia coli UTI. Treatment was initiated with Tamiflu and Bactrim DS. The patient subsequently reported increasing weakness and fell yesterday after losing her balance. She reports that she has trouble standing up from a seated position but had not been falling until recently which she makes vague references to "since she broke her neck". It is known that she had cervical spine surgery in November 2016 and she may be referencing this event. She was seen in the emergency room yesterday where she was found to be hyponatremic and chest x-ray and CT head were negative. She was unstable and hospitalization was recommended however patient signed out AGAINST MEDICAL ADVICE. She returned home and fell a second time resulting in injuries to her right posterior ribs and immediate pain. She returned to the emergency room with the x-ray demonstrated posterior rib fractures on the right of the ninth and 10th ribs without evidence of pneumothorax. Patient was hospitalized. She reports her last alcohol use was 4 days ago and that she has stopped drinking. She received lorazepam once overnight which triggered hallucinations and very poor level of consciousness. The patient is somnolent time of my assessment but denies cough or difficulty breathing although is obviously in pain when coughing. PH/SH/FH: agree with that recorded above by Dr. Bassett with addition of right knee replacement 11/07/2010. ROS: 10 point review is previously reported by Dr. Bassett-no additional history can be obtained from the patient at this time EXAM: General-drowsy, in pain with cough, speech slurred; 97.7, 135/75, 95% on room air HEENT-PERRL, EOMI without nystagmus, conjunctiva clear, sclera anicteric, conjugate gaze, facial structures symmetric, oropharynx clear, neck supple and without adenopathy Lungs-spontaneous respirations nonlabored, deep inspiration appears to cause some discomfort and cough is clearly painful; breath sounds are coarse one half up the right lung field posteriorly and at the left base, no wheezing present Chest wall-no subcutaneous air is palpable posteriorly, laterally, or in supraclavicular fossa Cardiac-regular rhythm, S1-S2 Abd-soft, nontender, bowel sounds present Ext-without edema, degenerative changes present small joints of the hands Skin-multiple bruises present including small bruise over the bridge of the nose , a large bruise over the posterior lateral right ribs, small bruises over the knees bilaterally, a large bruise over the left medial elbow, and a bruise over the lateral right hand Neuro-cranial nerves 3-12 grossly intact, sensation intact to touch 4 extremities, tremulous, victim advocate symmetric, power grossly symmetric with generalized weakness, able to dorsiflex/plantar flex/race each leg off the bed independently Psych-lethargic/drowsy but cooperative when stimulated to respond DATA: EtOH nondetectable, sodium 126-127, CBC unremarkable. Creatinine 0.6, AST 148, ALT 67. TSH 0.36. Urinalysis unremarkable. X-rays of the chest/ribs reviewed by myself demonstrating clear lung spring, subcutaneous air on the right, and posterior rib fractures as described above. CT of the head obtained on the initial ER visit also reviewed by myself demonstrating no acute pathology but generalized atrophy. A/P: Gait instability with falls Right posterior rib fractures Hyponatremia Hypokalemia-POA Chronic alcohol abuse Influenza A-Tamiflu initiated 04/21 Recent Escherichia coli UTI-adequately treated Hypertension DJD Recent C4-C6 ACDF for severe cervical stenosis with myelomalacia Shoulder pain with rotator cuff tear Depression Tobacco abuse Continue IV fluids, continue Tamiflu (day 4), monitor for alcohol withdrawal symptoms. PT/OT consults. Patient is had 3 days of Bactrim DS with normal UA at present-treatment completed. Potassium supplemented overnight and improved. Continue to monitor. Repeat chest x-ray, subcutaneous air present but no evidence of pneumothorax on initial films. Patient reports no DPOA and her children (specifically mentions Kimberli) should make decisions for her. Full code. Hospital Course Summary Disclaimer: The visit summary below is not to be considered part of the above Progress Note.
[2017-04-24] MEDS ORDERED: MORPHINE SULFATE 2mg INJECTION IVP PRN (05:31)
[2017-04-24 07:35] VITALS: RESP 18
--- NOTE | 2017-04-24 07:47 | XRay Report ---
Indication: fall, posterior rib pain PROCEDURE: XR ribs RT min 3V w CXR1V: Encounter: Initial Comparison: April 23, 2017 FINDINGS: Chest: The lungs are clear. There is no abnormal airspace opacity, pleural effusion or pneumothorax identified. The heart size, pulmonary vasculature and mediastinum are within normal limits. Subcutaneous emphysema is seen in the right chest wall. AP and oblique views of the right ribs: Displaced fracture of the right ninth and 10th posterior ribs. IMPRESSION: No acute cardiopulmonary abnormality. Right lower rib fractures. Subcutaneous emphysema raises concern for pneumothorax although I cannot identify a visible pneumothorax. .
[2017-04-24] MEDS ORDERED: NALOXONE 2 MG/2 ML INJECTION PFS IVP PRN (07:49)
[2017-04-24] MEDS: MULTI-VITAMIN + MINERAL TABLET PO SCH (08:43)
[2017-04-24] MEDS: FOLIC ACID 1 MG TABLET PO SCH (08:43)
[2017-04-24] MEDS: HYDROCODONE/APAP 5mg/325mg TABLET PO PRN (18:56)
[2017-04-24] MEDS: LOSARTAN 50 MG TABLET PO SCH (22:14)
[2017-04-24] MEDS: DOCUSATE SODIUM 100 MG CAPSULE PO PRN (22:33)
[2017-04-25] MEDS: SALINE FLUSH 10ml SYRINGE IVF PRN (00:49)
[2017-04-25] MEDS: NS with KCL 20 mEq 1,000 ML IV SCH ×3 (03:23→22:53)
[2017-04-25] MEDS: OMEPRAZOLE 20 MG CAPSULE PO SCH (06:18)
[2017-04-25] MEDS: FOLIC ACID 1 MG TABLET PO SCH (08:35)
[2017-04-25] MEDS: LOSARTAN 50 MG TABLET PO SCH ×2 (08:35→22:56)
[2017-04-25] MEDS: MULTI-VITAMIN + MINERAL TABLET PO SCH (08:37)
--- NOTE | 2017-04-25 08:42 | XRay Report ---
Indication: rib fractures, sq air-r/o pneumo PROCEDURE: XR chest 1V: Encounter: Initial Comparison: April 24, 2017 Findings: Minimal linear atelectasis in the right lower lobe. Lungs are otherwise clear. No visible pneumothorax or pleural effusion. Heart size and mediastinal contours are stable. Pulmonary vascularity is normal. Subcutaneous emphysema is redemonstrated in the right chest wall with interval decrease. Right rib fractures are better evaluated on the dedicated rib radiographs. Impression: No visible pneumothorax. .
[2017-04-25] MEDS: DOCUSATE SODIUM 100 MG CAPSULE PO PRN (09:19)
[2017-04-25] MEDS: HYDROCODONE/APAP 5mg/325mg TABLET PO PRN ×2 (09:19→17:16)
[2017-04-25] MEDS: HYDRALAZINE 20 MG/ML INJECTION IVP PRN (14:58)
[2017-04-25] MEDS: POLYETHYL GLYCOL 3350 17gm PACKET PO SCH (15:00)
--- NOTE | 2017-04-25 16:43 | Progress Note ---
- Date 04/25/17 Subjective: Mrs. Leach reports she's having pain with cough but otherwise much better. She developed mild exertional dyspnea ambulating in the halls this afternoon after initially being able to walk only about 20 feet with her physical therapy evaluation this morning. Nursing reports she was much more stable this afternoon than she was this morning. She has no pain breathing unless cough is triggered. She denies sputum production. She's had no nausea or vomiting and denies fever or myalgias. Her appetite is poor and she remained steadfast that she is discontinued alcohol use. Her daughter is present and reports that the patient has been able to stop cold turkey in the past successfully until a major life event has acted as a trigger for relapse. Objective Vital signs: Temperature 98.9 F 04/25/17 15:01 Pulse Rate 77 04/25/17 15:01 Respiratory Rate 18 04/25/17 15:01 Blood Pressure 170/79 H 04/25/17 15:01 Pulse Oximetry 98-RA 04/25/17 15:01 I/O 3400/1950 Weight stable from admission NAD, alert, fluent speech No tremulousness Conjunctiva clear, sclera anicteric Increased bruising present right lateral chest and mid back Respirations nonlabored, fair airflow, breath sounds clear Regular rhythm, S1-S2 Abdomen soft, nontender, bowel sounds present Extremities without edema GIOVANI Oriented to [facility], 04/24/17, cooperative Rhythm: Normal Sinus Rhythm (telemetry strips reviewed by myself) Height/Weight/BMI: Height 1.55 m Weight 75.7 kg Body Mass Index 31.5 Results - Labs CBC & Chem 7: 04/25/17 04:28 04/25/17 04:28 Labs: INR 0.94 AST 87, ALT 59, bilirubin 0.3, albumin 3.3 - Imaging and Cardiology Chest x-ray Status: image reviewed by me (Minor atelectasis present, no evidence of pneumothorax-word fractures not well visualized on the chest x-ray although some residual subcutaneous emphysema is again seen and decreased from yesterday' s x-ray.) Assessment and Plan (1) Ribs, multiple fractures Current visit: Yes Status: Acute (2) Ambulatory dysfunction Problem details: With falls Current visit: Yes Status: Acute (3) Influenza A Current visit: Yes Status: Acute Assessment and Plan: Impression: Gait instability with falls Right posterior rib fractures Hyponatremia-POA Hypokalemia-POA Chronic alcohol [id number] 16 on 04/25/17 Influenza A-Tamiflu initiated 04/21 Recent Escherichia coli UTI-adequately treated Hypertension DJD Recent C4-C6 ACDF for severe cervical stenosis with myelomalacia Shoulder pain with rotator cuff tear Depression Tobacco abuse Plan: Patient is significantly more alert today than she was yesterday and able to cooperate with history and examination. By nursing history she is more functional this afternoon than she was this morning. Sodium is improving progressively but remains under 130. Continue IV fluids overnight-if sodium is better in the morning and patient is ambulating stably anticipate discharge tomorrow. Due to recurrent hyponatremia would be inclined to avoid hydrochlorothiazide at discharge. Patient will complete 5 day course of Tamiflu tomorrow morning (initiated 04/21 with single dose given on Friday). Patient is not interested in formal counseling for alcohol cessation, plans to see her dna sequencing associate for support and her daughter believes this is an adequate plan based on mother's past ability to stop. Blood pressures moderately elevated, losartan resumed yesterday; review of outpatient records indicates reasonably good control of blood pressure over the past 6 months. Continue to monitor. Pain control associated with rib fractures is good, oxygenating well. There continues to be evidence of subcutaneous air but no indication of pneumothorax. - Physician Narrative Narrative: Date: 04/25/17 Time: 1639 Hospital Course Summary Disclaimer: The visit summary below is not to be considered part of the above Progress Note. Hospital Course: 04/24/17 Mrs. Leach is admitted after recurrent falls resulting in posterior right 9th and 10th rib fractures. Sodium level was depressed at 124 the first time the patient was seen in the emergency room and signed out AGAINST MEDICAL ADVICE. She has a history of hyponatremia and alcohol abuse. Last drink is reported to been 4 days prior to admission and alcohol level was nondetectable. Treatment for influenza had been initiated several days prior to current hospitalization. IV fluids were initiated with normal saline, Tamiflu continued. Patient was monitored for alcohol withdrawal. Single dose of lorazepam given resulting in excessive somnolence and hallucinations. Chest x-ray with subcutaneous air although no indication of pneumothorax-film to be repeated. 04/25/17 Patient is significantly more alert today than she was yesterday and able to cooperate with history and examination. By nursing history she is more functional this afternoon than she was this morning. Sodium is improving progressively but remains under 130. Continue IV fluids overnight-if sodium is better in the morning and patient is ambulating stably anticipate discharge tomorrow. Due to recurrent hyponatremia would be inclined to avoid hydrochlorothiazide at discharge. Patient will complete 5 day course of Tamiflu tomorrow morning (initiated 04/21 with single dose given on Friday). Patient is not interested in formal counseling for alcohol cessation, plans to see her dna sequencing associate for support and her daughter believes this is an adequate plan based on mother's past ability to stop. Blood pressures moderately elevated, losartan resumed yesterday; review of outpatient records indicates reasonably good control of blood pressure over the past 6 months. Continue to monitor. Pain control associated with rib fractures is good, oxygenating well. There continues to be evidence of subcutaneous air but no indication of pneumothorax.
[2017-04-25] MEDS ORDERED: MIRTAZAPINE 30 MG TABLET PO SCH (21:00)
[2017-04-25] MEDS ORDERED: ACETAMINOPHEN 500 MG TABLET PO SCH (21:00)
[2017-04-25] MEDS: BuPROPion SR 150mg (12HR) TABLET PO SCH (22:55)
[2017-04-25] MEDS: SENNA + DOCUSATE TABLET PO SCH (22:57)
[2017-04-26] MEDS: HYDROCODONE/APAP 5mg/325mg TABLET PO PRN (01:00)
[2017-04-26] MEDS: OMEPRAZOLE 20 MG CAPSULE PO SCH (05:53)
[2017-04-26 07:53] VITALS: TEMP 96.7
[2017-04-26] MEDS: NS with KCL 20 mEq 1,000 ML IV SCH (08:58)
[2017-04-26] MEDS: BuPROPion SR 150mg (12HR) TABLET PO SCH (09:00)
[2017-04-26] MEDS: POLYETHYL GLYCOL 3350 17gm PACKET PO SCH (09:00)
[2017-04-26] MEDS: SENNA + DOCUSATE TABLET PO SCH (09:00)
[2017-04-26] MEDS ORDERED: CITALOPRAM 40 MG TABLET PO SCH (09:00)
[2017-04-26] MEDS ORDERED: CETIRIZINE 10 MG TABLET PO SCH (09:00)
[2017-04-26] MEDS: MULTI-VITAMIN + MINERAL TABLET PO SCH (09:00)
[2017-04-26] MEDS: FOLIC ACID 1 MG TABLET PO SCH (09:00)
[2017-04-26] MEDS: LOSARTAN 50 MG TABLET PO SCH (09:01)
--- NOTE | 2017-04-26 09:57 | Progress Note ---
- Date 04/26/17 Subjective: 66 y/o female with a history of chronic alcohol abuse. The patient presented to her PCP on Friday and was diagnosed with a UTI and influenza A. The patient was started on Tamiflu and Bactrim. The patient was discharged back to home. The patient has increased weakness and fell earlier today. Patient states lost her balance. The patient presented to the ED where her workup was consistent with hyponatremia. Her CXR was negative and her CT head was negative. Because of her instability the patient was recommended for admission at that time and signed out AMA to care for her 3 dogs. The patient arrived home and promptly fell again. This time landing on her right ribs. She had immediate pain and presents back to the ED where she now has diagnosed right post 9,10 rib fx without pneumothorax. The patient is willing to come into the hospital now. The patient is an abuser of alcohol and chronically drinks vodka. Patient has been sober for 4 days now and has no sx to suggest withdrawal. Today, she is resting comfortably. She denies fever or chills. She is coughing and has some sputum production. She denies N/V. She has not had a BM since admission but is passing gas. She denies abdominal pain. She denies SOA, CP or lightheadedness. She wants to go home. Objective Vital signs: Temperature 96.7 F L 04/26/17 07:47 Pulse Rate 74 04/26/17 07:47 Respiratory Rate 18 04/26/17 07:47 Blood Pressure 188/81 H 04/26/17 07:47 Pulse Oximetry 96 04/26/17 07:47 Rhythm: Normal Sinus Rhythm (telemetry strips reviewed by myself) Height/Weight/BMI: Height 1.55 m Weight 75.4 kg Body Mass Index 31.5 Comments: Gen: alert and oriented. NAD Skin: warm and dry. HEENT: NC/AT PERRL, EOMI, Sclera,lids and conjunctiva wnl. MMM. OP clear. Neck: supple. No JVD. Carotids 2+ without bruits Lungs: Diminished. coarse. CV: regular rate and rhythm. No murmur, rub or gallop No edema. Pedal pulses are good Abd: soft. +BS. NT/ND MS: Good strength and ROM. Neuro: no focal deficit. Results - Labs CBC & Chem 7: 04/25/17 04:28 04/25/17 04:28 Assessment and Plan (1) Ribs, multiple fractures Current visit: Yes Status: Acute (2) Influenza A Current visit: Yes Status: Acute (3) Ambulatory dysfunction Problem details: With falls Current visit: Yes Status: Acute Assessment and Plan: Impression: 1. Recent E coli UTI and Influenza A -Completed antibiotics and tamaflu coarses 2. Hyponatremia -appears new. It is stable but still low. -May need this worked up as outpt -Stop HCTZ 3. Mild hypokalemia on admission -Resolved with replacement 4. Gait instability with falls -Pt ambulating well now. 5. Right posterior rib fractures 6. Chronic alcohol [id number]-NOXM-Rs 16 on 04/25/17 7. Hypertension -Not adequately controlled -on cozaar 25mg BID here and at home -Will add Norvasc 5 mg daily 8. DJD 9. Recent C4-C6 ACDF for severe cervical stenosis with myelomalacia 10. Shoulder pain with rotator cuff tear 11. Depression 12. Tobacco abuse -Welbutrin started. 13. ETOHism -Pt stopping, last drink was Sun -Pt plans to continue cessation 14. SQ air seen on CXR -Improved on CXR 04/25/17 -No pneumothorax I think she can go home today. She is high risk of returning if she does not stop drinking. She needs to follow up with her PCP in a week and have labs drawn to follow up on the hyponatremia. She needs to follow BPs as they have been quite high here. I have stopped the HCTZ and started norvasc 5mg daily. - Physician Narrative Narrative: Date: 04/26/17 Time: 0953 Hospital Course Summary Disclaimer: The visit summary below is not to be considered part of the above Progress Note. Hospital Course: 04/24/17 Mrs. Leach is admitted after recurrent falls resulting in posterior right 9th and 10th rib fractures. Sodium level was depressed at 124 the first time the patient was seen in the emergency room and signed out AGAINST MEDICAL ADVICE. She has a history of hyponatremia and alcohol abuse. Last drink is reported to been 4 days prior to admission and alcohol level was nondetectable. Treatment for influenza had been initiated several days prior to current hospitalization. IV fluids were initiated with normal saline, Tamiflu continued. Patient was monitored for alcohol withdrawal. Single dose of lorazepam given resulting in excessive somnolence and hallucinations. Chest x-ray with subcutaneous air although no indication of pneumothorax-film to be repeated. 04/25/17 Patient is significantly more alert today than she was yesterday and able to cooperate with history and examination. By nursing history she is more functional this afternoon than she was this morning. Sodium is improving progressively but remains under 130. Continue IV fluids overnight-if sodium is better in the morning and patient is ambulating stably anticipate discharge tomorrow. Due to recurrent hyponatremia would be inclined to avoid hydrochlorothiazide at discharge. Patient will complete 5 day course of Tamiflu tomorrow morning (initiated 04/21 with single dose given on Friday). Patient is not interested in formal counseling for alcohol cessation, plans to see her wire fence builder for support and her daughter believes this is an adequate plan based on mother's past ability to stop. Blood pressures moderately elevated, losartan resumed yesterday; review of outpatient records indicates reasonably good control of blood pressure over the past 6 months. Continue to monitor. Pain control associated with rib fractures is good, oxygenating well. There continues to be evidence of subcutaneous air but no indication of pneumothorax.
[2017-04-26] MEDS: HYDRALAZINE 20 MG/ML INJECTION IVP PRN (10:41)
[2017-04-26] MEDS: SALINE FLUSH 10ml SYRINGE IVF PRN (10:42)
[2017-04-26] MEDS ORDERED: AMLODIPINE 5 MG TABLET PO SCH (10:45)
[2017-04-26 11:48] VITALS: BP 158/67; PULSE 91; O2SAT 99
--- NOTE | 2017-04-26 12:44 | Discharge Summary ---
Discharge Information Date of admission: 04/24/17 03:16 Anticipated date of discharge: 04/26/17 Attending Physician: Grace Bailey MD Primary care physician: Alexis Villalpando MD - Discharge Diagnosis (1) Ribs, multiple fractures Status: Acute (2) Influenza A Status: Acute (3) Ambulatory dysfunction Status: Acute Influenza A Hyponatremia ETOHism Rib fractures Falls - Procedures Procedures: None - Laboratory Labs: 04/25/17 04:28 04/25/17 04:28 - Radiology Radiology: Date of Exam: 04/25/17 Type of Exam(s): XR chest 1V Indication: rib fractures, sq air-r/o pneumo Findings: Minimal linear atelectasis in the right lower lobe. Lungs are otherwise clear. No visible pneumothorax or pleural effusion. Heart size and mediastinal contours are stable. Pulmonary vascularity is normal. Subcutaneous emphysema is redemonstrated in the right chest wall with interval decrease. Right rib fractures are better evaluated on the dedicated rib radiographs. Impression: No visible pneumothorax. Date of Exam: 04/24/17 Type of Exam(s): XR ribs RT min 3V w CXR1V Indication: fall, posterior rib pain Findings: Chest: The lungs are clear. There is no abnormal airspace opacity, pleural effusion or pneumothorax identified. The heart size, pulmonary vasculature and mediastinum are within normal limits. Subcutaneous emphysema is seen in the right chest wall. AP and oblique views of the right ribs: Displaced fracture of the right ninth and 10th posterior ribs. IMPRESSION: No acute cardiopulmonary abnormality. Right lower rib fractures. Subcutaneous emphysema raises concern for pneumothorax although I cannot identify a visible pneumothorax. History of Present Illness HPI: This is a 66 y/o patient with a history of chronic alcohol abuse. The patient presented to her PcP on Friday and was diagnosed with a UTI and influenza A. The patient was started on Tamiflu and Bactrim. The patient was discharged back to home. The patient has increased weakness and fell earlier today. Patient states lost her balance. The patient presented to the ED where her workup was consistent with hyponatremia. Her CXR was negative and her CT head was negative. Because of her instability the patient was recommended for admission at that time and signed out AMA to care for her 3 dogs. The patient arrived home and promptly fell again. This time landing on her right ribs. She had immediate pain and presents back to the ED where she now has diagnosed right post 9,10 rib fx without pneumothorax. The patient is willing to come into the hospital now. The patient is an abuser of alcohol and chronically drinks vodka. Patient has been sober for 4 days now and has no sx to suggest withdrawal. Objective Vital signs: Temperature 96.7 F L 04/26/17 07:47 Pulse Rate 91 04/26/17 11:47 Respiratory Rate 18 04/26/17 07:47 Blood Pressure 158/67 H 04/26/17 11:47 Pulse Oximetry 99 04/26/17 11:47 Rhythm: Normal Sinus Rhythm (telemetry strips reviewed by myself) Height/Weight/BMI: Height 1.55 m Weight 75.4 kg Body Mass Index 31.5 Comments: Gen: alert and oriented. NAD. Pleasant and conversive Skin: warm and dry. HEENT: NC/AT PERRL, EOMI, Sclera,lids and conjunctiva wnl. MMM. OP clear. Neck: supple. No JVD. Carotids 2+ without bruits Lungs: Diminished and coarse CV: regular rate and rhythm. No murmur, rub or gallop No edema. Pedal pulses are good Abd: soft. +BS. NT/ND MS: Good strength and ROM. Neuro: no focal deficit. Hospital Course This is a general summary of the patient's hospital course. For more details refer to the complete medical record. Hospital course: 04/24/17 Mrs. Leach is admitted after recurrent falls resulting in posterior right 9th and 10th rib fractures. Sodium level was depressed at 124 the first time the patient was seen in the emergency room and signed out AGAINST MEDICAL ADVICE. She has a history of hyponatremia and alcohol abuse. Last drink is reported to been 4 days prior to admission and alcohol level was nondetectable. Treatment for influenza had been initiated several days prior to current hospitalization. IV fluids were initiated with normal saline, Tamiflu continued. Patient was monitored for alcohol withdrawal. Single dose of lorazepam given resulting in excessive somnolence and hallucinations. Chest x-ray with subcutaneous air although no indication of pneumothorax-film to be repeated. 04/25/17 Patient is significantly more alert today than she was yesterday and able to cooperate with history and examination. By nursing history she is more functional this afternoon than she was this morning. Sodium is improving progressively but remains under 130. Continue IV fluids overnight-if sodium is better in the morning and patient is ambulating stably anticipate discharge tomorrow. Due to recurrent hyponatremia would be inclined to avoid hydrochlorothiazide at discharge. Patient will complete 5 day course of Tamiflu tomorrow morning (initiated 04/21 with single dose given on Friday). Patient is not interested in formal counseling for alcohol cessation, plans to see her technical publications writer for support and her daughter believes this is an adequate plan based on mother's past ability to stop. Blood pressures moderately elevated, losartan resumed yesterday; review of outpatient records indicates reasonably good control of blood pressure over the past 6 months. Continue to monitor. Pain control associated with rib fractures is good, oxygenating well. There continues to be evidence of subcutaneous air but no indication of pneumothorax. 04/26/17 Pt is doing well. Alert and oriented. She wants to go home. She reports she has been walking without issues and that she would be more active if she were home. Sodium is stable but remains low. This will need to be work up as outpt is persists. Her BP has been high so she was started on Norvasc 5mg daily. She is to watch her BPs and report if consistently over 140/90. She is not going home on HCTZ due to the low sodium. Her rib pain is controlled. The SQ air was improved on second CXR. This can be followed as out pt as well. Time spent with patient: 25 - 35 minutes Resuscitation Status: Full Code Discharge Plan - Discharge Disposition Discharge Date: 04/26/17 Disposition: Discharged Home, Self-Care *Condition: Stable Reason For Visit (Visit label in EMR): Influenza A - Discharge Medications *Discharge Medications: New Amlodipine Besylate [Norvasc] 5 mg PO DAILY #30 tab Folic Acid [Folate] 1 tab PO DAILY #30 tab Multi-Vitamin Plain [Theragran] 1 tab PO DAILY #30 tab Thiamine [Vitamin B-1] 100 mg PO DAILY #30 tab Continue Citalopram [Celexa] 40 mg PO DAILY Cetirizine [Zyrtec] 10 mg PO DAILY Vitamin E 1,000 unit PO DAILY Ascorbic Acid [Vitamin C] 500 mg PO DAILY Mirtazapine [Remeron] 30 mg PO HS Cyclobenzaprine [Flexeril] 10 mg PO TID Bisacodyl [Laxative] 10 mg PO DAILY DiphenhydrAMINE [Benadryl] 1 cap PO BID PRN PRN Reason: Itching Lysine 1,000 mg PO BID PRN PRN Reason: cold sores Cholecalciferol (Vitamin D3) [Vitamin D3] 1 cap PO DAILY HydrOXYzine [Atarax] 25 mg PO DAILY Pseudoephedrine HCl [Sudafed 12 Hour] 120 mg PO DAILY #0 Biotin/Calcium Carbonate [Biotin 800 Mcg Tablet] 10,000 mcg PO DAILY Mapap ES 500 mg capsule 1,000 mg PO HS cap Prilosec (Omeprazole) 40 mg capsule,delayed release 40 mg PO QAM #90 cap Wellbutrin SR (bupropion HCl SR) 150 mg tablet,12 hr 150 mg PO BID #180 tab Mobic (Meloxicam) 15 mg tablet 15 mg PO DAILY #90 tab Cozaar (losartan) 25 mg tablet 25 mg PO BID #180 tab Discontinued Bactrim DS (sulfamethoxazole 800 mg-trimethoprim 160 mg) tablet 1 tab PO BID #10 tab hydrochlorothiazide 25 mg tablet 12.5 mg PO DAILY #45 tab - Discharge Packet/Instructions *Diet: Regular *Activity: as tolerated *Pain Management/Treatment: None *Wound Care: N/A Additional Instructions: Follow up with PCP in one week for BMP. Check BP regularly and notify if BP over 140/90 consistently *Expected Signs/Symptoms: N/A *Notify Physician if: Worsening SOA, cough, fever or chills. Increased weakness or lightheadedness or confusion *During Business Hours Contact: PCP *After Business Hours Contact: Emergency room *Pending Lab/Results: No Pending Lab - Referrals/Follow Up - Patient Handouts - Dismissal Complete Discharge Instructions are:: Complete Physician Narrative - Narrative Attestation Narrative: Date: 04/26/17 Time: 3642
== END 2017-04-26 14:02 | disposition home or self-care (01) | DRG 184 ==
LOC: ED 01:26 → MED 03:16
PROVIDERS: ADMIT Emergency Medicine; ATTEND Internal Medicine